=== PATIENT | male | born 1955 | race Two or more races ===

== ENCOUNTER 2017-05-13 06:03 | Day surgery (SDC) | payer OTHER ==
[2017-05-10 15:34] VITALS: BMI 22.7
[2017-05-13] VITALS (10 sets, daily range): BP systolic 113–146; BP diastolic 79–93; PULSE 66–81; RESP 13–18; Ht 165.1 cm; Wt 61.5 kg
[~2017-05-13] VITALS: Ht 165.1 cm; Wt 61.5 kg
[~2017-05-13 06:03] MED LIST: ANUHCSUP PR; GEMF600T60 PO; GUAI118L94 PO; LORA-186 PO; PANT40TA4 PO; UDMYL PO
[2017-05-13] MEDS ORDERED: AMLO-145 PO (06:47)
--- NOTE | 2017-05-13 06:52 | RADRPT ---
PROCEDURE: XR Chest. CLINICAL INDICATION: Preoperative. TECHNIQUE: Single frontal view. COMPARISON: 08/30/2015. FINDINGS: The lungs are clear. The heart size is normal. There is calcification in the aorta consistent with atherosclerosis. There is no pleural effusion. There is no pneumothorax. IMPRESSION: 1. Atherosclerosis. 2. Clear lungs. 3. No change from 08/30/2015. RPTAT: QQ .Garfield Cobb MD, MD Date Time Electronically viewed and signed by .Garfield Cobb MD, MD on 05/13/2017 06:51 .R/
[2017-05-13] MEDS ORDERED: BUPIVACAINE 0.25% (MPF) 30 ML INJ ONE (07:02)
[2017-05-13] MEDS ORDERED: SUCCINYLCHOLINE CHLORIDE 100 MG/5 ML SYG IV ONE (07:32)
[2017-05-13] MEDS ORDERED: LIDOCAINE 2% (SDV) 5 ML INJ ONE (07:32)
[2017-05-13] MEDS ORDERED: PROPOFOL 20 ML ONE (07:32)
[2017-05-13] MEDS ORDERED: MIDAZOLAM 1 MG/ML 2 ML INJ ONE (07:32)
[2017-05-13] MEDS ORDERED: FENTAnyl 50 MCG/ML VIAL ONE (07:32)
[2017-05-13] MEDS ORDERED: CEFAZOLIN 1 GM INJ ONE (07:58)
[2017-05-13] MEDS ORDERED: KETOROLAC 30 MG INJ ONE (08:19)
[2017-05-13] MEDS ORDERED: ONDANSETRON 4 MG INJ ONE (08:21)
[2017-05-13] MEDS ORDERED: DEXAMETHASONE 4 MG/ML 1 ML INJ ONE (08:21)
[2017-05-13] MEDS ORDERED: EPHEDrine SULFATE 50 MG/5 ML SYG ONE (08:22)
--- NOTE | 2017-05-13 08:29 | OPR ---
Date/Time of Note Date/Time of Note DATE: 05/13/17 TIME: 08:23 Operative Report Procedure Date: May 13, 2017 Preoperative Diagnosis anal stenosis Postoperative Diagnosis anal stenosis and perianal mass Operation Performed 1. examination under anesthesia 2. anal dilation 3. perianal mass excision 4. rigid proctoscopy 5. therapeutic injection of subcutaneous marcaine Surgeon: Mihir CAMARILLO Specimens perianal mass Indications This is a 61-year-old male who had hemorrhoidectomy surgery a year ago. Recently he has been noticing decreased size in stool caliber and difficulty with bowel movements. Patient requested evaluation and surgical repair. Patient had a recent colonoscopy 2 years ago without any concerning findings. Risks alternatives benefits and percent were discussed the patient. Patient expressed understanding and consents to the operation. Procedure Description Patient is taken to the OR and prepped and draped in usual sterile fashion surgical timeout is performed IV antibiotics given. Initial examination showed anal stenosis with hardened posterior mass at the 12 o'clock position. It could not be distinguished from cicatrix or firm mass. The firm the area was excised with a 15 blade and held with Allis and sent for specimen. Hemostasis was established. Hill-Ortez was used for further examination. There is additional areas of cicatrix and hardening this is divided with a 15 blade. Anal dilatation was performed. Rigid proctoscopy was then performed without any evidence of any masses or lesions obstructing the anal canal. Hemostasis was established throughout the incision sites. Therapeutic injection of subcutaneous Marcaine was then performed. Dry dressings were applied. Mihir CAMARILLO May 13, 2017 08:29
[2017-05-13] MEDS ORDERED: MEPERIDINE 25 MG INJ IV PRN (08:30)
[2017-05-13] MEDS ORDERED: OXYCODONE/ACETAMINOPHEN (5/325) TAB PO PRN ×2 (08:30)
[2017-05-13] MEDS ORDERED: PROCHLORPERAZINE 10 MG INJ IV PRN (08:30)
[2017-05-13] MEDS ORDERED: HYDROCODONE/APAP (5/325) TAB PO ONE (08:30)
[2017-05-13] MEDS ORDERED: FENTAnyl 50 MCG/ML VIAL IV PRN ×2 (08:30)
[2017-05-13] MEDS ORDERED: DIPHENHYDRAMINE 50 MG INJ IV PRN (08:30)
[2017-05-13] MEDS ORDERED: ONDANSETRON 4 MG INJ IV PRN (08:30)
[2017-05-13] MEDS ORDERED: HYDROmorphONE (0.2 MG/ML) 10ML SYG IV PRN (08:30)
== END 2017-05-13 10:41 | disposition home or self-care (01) ==
LOC: SDS 06:03
PROVIDERS: ATTEND Surgery
DX: K62.4 Stenosis of anus and rectum (principal); R22.9 Localized swelling, mass and lump, unspecified; K59.8 Other specified functional intestinal disorders
CPT/HCPCS: 45300; 46922; 71010; 88304; J0690; J1100; J1885; J2250; J2405; J3010; J7999; Z7512; Z7610

== ENCOUNTER 2018-12-18 06:20 | Inpatient (IN) | payer OTHER ==
[2018-12-18] VITALS (42 sets, daily range): BP systolic 90–156; BP diastolic 48–99; PULSE 59–100; RESP 6–28; Ht 165.1 cm; Wt 64.6 kg
[~2018-12-18] VITALS: Ht 165.1 cm; Wt 64.6 kg
[~2018-12-18 06:20] MED LIST changes: +AMLO-145 PO; -ANUHCSUP PR; -GEMF600T60 PO; +GEMF600T8 PO; +HYDR25SU37 PR
[2018-12-18] MEDS ORDERED: BUPIVACAINE 0.25% (MPF) 30 ML INJ ONE (06:40)
[2018-12-18] MEDS ORDERED: GEMF600T8 PO (06:49)
[2018-12-18] MEDS ORDERED: AMLO5TAB4 PO (06:49)
[2018-12-18] MEDS ORDERED: CEFAZOLIN 2 GM/50 ML (PMX) 50 ML IVPB ONE (07:00)
[2018-12-18] MEDS ORDERED: SOD CHLORIDE 0.9% 1,000 ML IV SCH (07:00)
--- NOTE | 2018-12-18 07:27 | PREAC ---
Date/Time of Note Date/Time of Note DATE: 12/18/18 TIME: 07: Anesthesia Eval and Record Evaluation Time Pre-Procedure Interview DATE: 12/18/18 TIME: 07: Age 62 Sex male NPO: 8 hrs Preoperative diagnosis recurrent anal stenosis Planned procedure anorectal mucosal and skin flap and rigid proctoscopy Past Medical History Past Medical History: Includes Cardio: HTN, Dyslipidemia Surgery & Anesthesia Issues No known issue Meds Anticoagulation: No Beta Law within 24 hr: No Reason Beta Law not given: Pt. not on B-Law Reported Medications Gemfibrozil* (Gemfibrozil*) 600 Mg Tablet, 600 MG PO BID, TAB 12/18/18 Amlodipine Besylate* (Norvasc*) 5 Mg Tablet, 5 MG PO DAILY, TAB 12/18/18 Discontinued Reported Medications Amlodipine Besylate* (Amlodipine Besylate*) 5 Mg Tablet, 5 MG PO DAILY, #30 05/13/17 Hydrocortisone* Rectal (Anucort-HC* Supp) 25 Mg Supp, 25 MG HI HS, SUPP 04/14/15 Pantoprazole* (Pantoprazole*) 40 Mg Tablet.dr, 40 MG PO DAILY, TAB 04/14/15 Gemfibrozil* (Gemfibrozil*) 600 Mg Tablet, 600 MG PO BID, TAB 04/14/15 Discontinued Scripts Loratadine* (Claritin*) 10 Mg Tablet, 10 MG PO DAILY, #30 TAB Prov:NEO CAI NP 08/30/15 Guaifenesin-Codeine Phosphate* (Guaifenesin* with Codeine Liq) 120 Ml Liquid, 5 ML PO Q4H for COUGH, #120 ML Prov:NEO CAI NP 08/30/15 Magaldrate/Simethicone* (Mag-Al Plus Suspension*) 30 Ml Oral.susp, 30 ML PO Q6H PRN for GASTROINTESTINAL UPSET, #1 BOTTLE Prov:NEO CAI NP 08/30/15 Current Medications Cefazolin Sodium/ Dextrose 50 ml @ 100 mls/hr PRE-OP ONCE IVPB ; Start 12/18/18 at 07:00; Stop 12/18/18 at 07:29 Sodium Chloride 1,000 ml @ 75 mls/hr [id number] IV ; Start 12/18/18 at 07:00 Meds reviewed: Yes Allergies Coded Allergies: No Known Drug Allergy (Verified Allergy, Unknown, 12/18/18) Allergies Reviewed: Yes Labs/Studies Labs Reviewed: Reviewed by anesthesiologist test: N/A Pre-procedure Exam Last vitals Vital Signs Date Temp Pulse Resp B/P (MAP) Pulse Ox O2 O2 Flow FiO2 Time Delivery Rate 12/18/18 98.0 59 18 145/59 98 Room Air 07:17 (87) Airway: Adequate mouth opening, Adequate thyromental dist Mallampati: Mallampati II Teeth: Normal Lung: Normal Heart: Normal ASA Physical Status ASA physical status: 2 Emergency: None Planned Anesthetic General/MAC: ETT Planned Pain Management Parenteral pain med Pre-operative Attestations Prior to commencing anesthesia and surgery, the patient was re-evaluated, there was verification of: *The patient's identity *The results of appropriate recent lab work and preoperative vital signs *The above evaluation not changing prior to induction *Anesthetic plan, risk benefits, alternative and complications discussed with patient/family; questions answered; patient/family understands, accepts and wishes to proceed. HARLEY CAMPOS MD Dec 18, 2018 07:27
[2018-12-18] MEDS ORDERED: MIDAZOLAM 1 MG/ML 2 ML INJ ONE (07:44)
[2018-12-18] MEDS ORDERED: ROCURONIUM 50 MG INJ ONE (07:45)
[2018-12-18] MEDS ORDERED: FAMOTIDINE 20 MG INJ ONE (07:45)
[2018-12-18] MEDS ORDERED: LIDOCAINE 2% (SDV) 5 ML INJ ONE (07:45)
[2018-12-18] MEDS ORDERED: SEVOFLURANE 15 MIN ONE (07:45)
[2018-12-18] MEDS ORDERED: FENTAnyl 50 MCG/ML VIAL ONE (07:45)
[2018-12-18] MEDS ORDERED: CEFAZOLIN 1 GM INJ ONE (07:45)
[2018-12-18] MEDS ORDERED: SUCCINYLCHOLINE CHLORIDE 100 MG/5 ML SYG IV ONE (07:45)
[2018-12-18] MEDS ORDERED: PROPOFOL 20 ML ONE (07:45)
[2018-12-18] MEDS ORDERED: EPHEDrine SULFATE 50 MG/5 ML SYG ONE (07:45)
[2018-12-18] MEDS ORDERED: ONDANSETRON 4 MG INJ ONE (08:17)
[2018-12-18] MEDS ORDERED: DEXAMETHASONE 4 MG/ML 5 ML INJ ONE (08:17)
[2018-12-18] MEDS ORDERED: HYDROmorphONE 2 MG/ML SYG ONE (08:17)
[2018-12-18] MEDS ORDERED: NEOSTIGMINE 10 MG INJ ONE (09:09)
[2018-12-18] MEDS ORDERED: GLYCOPYRROLATE 0.4 MG INJ ONE (09:09)
[2018-12-18] MEDS ORDERED: SUGAMMADEX SODIUM 200 MG/2 ML VIAL IV ONE (09:18)
[2018-12-18] MEDS ORDERED: DIPHENHYDRAMINE 50 MG INJ IV PRN (09:30)
[2018-12-18] MEDS ORDERED: OXYCODONE/ACETAMINOPHEN (5/325) TAB PO PRN (09:30)
[2018-12-18] MEDS ORDERED: FENTAnyl 50 MCG/ML VIAL IV PRN ×3 (09:30)
[2018-12-18] MEDS ORDERED: MEPERIDINE 25 MG INJ IV PRN (09:30)
[2018-12-18] MEDS ORDERED: ONDANSETRON 4 MG INJ IV PRN ×2 (09:30→17:00)
[2018-12-18] MEDS ORDERED: HYDROmorphONE 0.5 MG/0.5 ML SYG IV PRN (09:30)
[2018-12-18] MEDS ORDERED: PROCHLORPERAZINE 10 MG INJ IV PRN (09:30)
[2018-12-18] MEDS ORDERED: HYDROCODONE/APAP (5/325) TAB PO PRN (09:30)
[2018-12-18] MEDS ORDERED: HYDROmorphONE 1 MG/5 ML IV SYRINGE IV PRN ×3 (09:30)
--- NOTE | 2018-12-18 09:37 | OPR ---
Date/Time of Note Date/Time of Note DATE: 12/18/18 TIME: 09:32 Operative Report Procedure Date: Dec 18, 2018 Preoperative Diagnosis anal stenosis Postoperative Diagnosis same Operation/Procedure Performed 1. anoplasty with house flap of localized adjacent tissue transfer with the use of skin flaps 70 sq cm defect of posterior pelvis 2. rigid proctoscopy 3. therapeutic injection of subcutaneous local anesthesia Surgeon see signature line Director Of Social Work none Anesthesia Type: general Estimated Blood Loss: 10 - 50 ml's Transfusion none Specimen none Grafts/Implants none Complications none Pt Condition Post Procedure: stable Indications This is a 62-year-old male who had extensive hemorrhoids. He had a hemorrhoidectomy. Subsequently he developed hypertrophic scarring in the posterior aspect. He had multiple serial dilatations without resolution and continue narrowed anal canal. He was managed medically for some time but he requested surgical intervention to allow widening of his anal canal. He is brought to the OR for rigid proctoscopy anal plasty with advancement house flap. Risks alternatives benefits and percent were discussed with the patient. Potential complications including but not limited to bleeding infection recurrence of anal stenosis mild incontinence pain infection were discussed the patient. Patient expressed understanding and consents to the operation. Procedure Description Patient is taken to the OR and prepped and draped in usual sterile fashion in a jackknife prone position. Surgical timeout was performed and IV antibiotics were given. Examination of the anal canal was made. Approximately 1 fingerbreadth was allowed for access however there was a tightening in the posterior aspect showing hypertrophic scarring. Small Hill-Ortez was placed and a 15 blade was used to fracture the scarring in a controlled fashion. Hypertrophic scarring was opened with careful attention to the sphincter muscles. The sphincter muscles were protected. 15 blade was used to make a house flap from the posterior sacrum all the way down to the posterior anal canal. The house flap was then raised with cautery all the way down to the mid sacrum. Good hemostasis was established in the surgical site. After the fracture of the posterior hypertrophic scarring a medium-sized Hill-Ortez was easily placed in the anal canal. Rigid proctoscopy was performed. There was no evidence of any masses or lesions in the rigid proctoscopy. The house advancement flap was then raised and advanced using interrupted 2-[address] down to the hypertrophic scarring to allow good healing. The localized adjacent to his transfer with use of skin flaps was closed with multiple 2-0 Vicryl and the posterior aspect near the sacral skin was closed with skin karine. Therapeutic contains local anesthesia was injected throughout all incision sites. Xeroform gauze and dry dressing was applied. Mihir CAMARILLO Dec 18, 2018 09:37
[2018-12-18] MEDS: CEFAZOLIN 2 GM/50 ML (PMX) 50 ML IVPB SCH ×2 (10:52→20:26)
--- NOTE | 2018-12-18 12:55 | PAC ---
Date/Time of Note Date/Time of Note DATE: 12/18/18 TIME: 12:55 Post-Anesthesia Notes Post-Anesthesia Note Last documented vital signs Vital Signs Date Temp Pulse Resp B/P (MAP) Pulse Ox O2 O2 Flow FiO2 Time Delivery Rate 12/18/18 98 88 9 131/81 94 Room Air 11:33 (98) 12/18/18 6.0 09:48 12/18/18 98.0 09:40 Activity: WNL Respiratory function: WNL Cardiovascular function: WNL Mental status: Baseline Pain reasonably controlled: Yes Hydration appropriate: Yes Nausea/Vomiting absent: Yes HARLEY CAMPOS MD Dec 18, 2018 12:55
[2018-12-18] MEDS ORDERED: HYDROmorphONE 1 MG/5 ML IV SYRINGE IV ONE (13:14)
--- NOTE | 2018-12-18 16:52 | QN ---
Documentation Comment seen and examined JEANCARLOS MONTOYA MD Dec 18, 2018 16:52
[2018-12-18] MEDS ORDERED: morphine 2 MG INJ IV PRN (17:00)
[2018-12-18] MEDS ORDERED: IBUPROFEN 600 MG TAB PO PRN (17:00)
[2018-12-18] MEDS ORDERED: ZOLPIDEM 5 MG TAB PO PRN (17:00)
[2018-12-18] MEDS: HYDROCODONE/APAP (5/325) TAB PO PRN (17:34)
[2018-12-18] MEDS: SOD CHLORIDE 0.9% 1,000 ML IV SCH ×2 (19:28→19:31)
[2018-12-19 02:00] VITALS: BP 104/63; PULSE 84; RESP 18
[2018-12-19] MEDS: CEFAZOLIN 2 GM/50 ML (PMX) 50 ML IVPB SCH ×2 (03:54→11:38)
[2018-12-19] MEDS: PANTOPRAZOLE (EC) 40 MG TAB PO SCH ×2 (05:35→06:07)
[2018-12-19] MEDS: HYDROCODONE/APAP (5/325) TAB PO PRN ×3 (05:39→17:35)
[2018-12-19] MEDS: SOD CHLORIDE 0.9% 1,000 ML IV SCH ×2 (06:08→15:28)
[2018-12-19 07:31] VITALS: BP 119/71; PULSE 74; RESP 18
[2018-12-19] MEDS ORDERED: BISACODYL (EC) 5 MG TAB PO ONE (10:30)
--- NOTE | 2018-12-19 10:52 | PN ---
Date/Time of Note Date/Time of Note DATE: 12/19/18 TIME: 10:51 Assessment/Plan VTE Prophylaxis Risk score (from Ns)>0 risk: 2 SCD applied (from Ns): No SCD contraindicated: other Pharmacological prophylaxis: other Lines/Catheters IV Catheter Type (from Nrsg): Peripheral IV Assessment/Plan Assessment/Plan s/p house advancement flap for anal stenosis pain control and await bowel movement Result Diagram: 12/18/18 1053 12/18/18 1053 Results 24hrs Laboratory Tests Test 12/18/18 10:53 White Blood Count 9.4 # Red Blood Count 4.85 Hemoglobin 13.6 L Hematocrit 40.9 L Mean Corpuscular Volume 84.3 Mean Corpuscular Hemoglobin 28.0 L Mean Corpuscular Hemoglobin Concent 33.3 Red Cell Distribution Width 12.7 Platelet Count 217 Mean Platelet Volume 11.7 H Immature Granulocytes % 0.300 Neutrophils % 79.8 H Lymphocytes % 16.1 Monocytes % 1.7 Eosinophils % 1.7 Basophils % 0.4 Nucleated Red Blood Cells % 0.0 Immature Granulocytes # 0.030 Neutrophils # 7.5 Lymphocytes # 1.5 Monocytes # 0.2 L Eosinophils # 0.2 Basophils # 0.0 Nucleated Red Blood Cells # 0.0 Sodium Level 142 Potassium Level 3.7 Chloride Level 108 Carbon Dioxide Level 23 Anion Gap 11 Blood Urea Nitrogen 14 Creatinine 0.82 Est Glomerular Filtrat Rate mL/min > 60 Glucose Level 117 Calcium Level 9.1 Total Bilirubin 0.0 L Direct Bilirubin 0.00 Indirect Bilirubin 0.0 Aspartate Amino Transf (AST/SGOT) 29 Alanine Aminotransferase (ALT/SGPT) 27 Alkaline Phosphatase 70 Total Protein 7.9 Albumin 4.4 Globulin 3.50 H Albumin/Globulin Ratio 1.25 Subjective 24 Hr Interval Summary Free Text/Dictation patient doing well, but still having some pain issues Exam/Review of Systems Exam Vitals Vital Signs Date Temp Pulse Resp B/P (MAP) Pulse Ox O2 O2 Flow FiO2 Time Delivery Rate 12/19/18 98.6 74 18 119/71 98 07:31 (87) 12/18/18 Room Air 15:03 12/18/18 6.0 09:48 Intake and Output 12/18/18 12/18/18 12/19/18 1515:00 23:00 07:00 IntakeIntake Total 750 ml 450 ml 1300 ml OutputOutput Total 10 ml 250 ml BalanceBalance 740 ml 450 ml 1050 ml Exam c/d/i Results Results 24hrs Laboratory Tests Test 12/18/18 10:53 White Blood Count 9.4 # Red Blood Count 4.85 Hemoglobin 13.6 L Hematocrit 40.9 L Mean Corpuscular Volume 84.3 Mean Corpuscular Hemoglobin 28.0 L Mean Corpuscular Hemoglobin Concent 33.3 Red Cell Distribution Width 12.7 Platelet Count 217 Mean Platelet Volume 11.7 H Immature Granulocytes % 0.300 Neutrophils % 79.8 H Lymphocytes % 16.1 Monocytes % 1.7 Eosinophils % 1.7 Basophils % 0.4 Nucleated Red Blood Cells % 0.0 Immature Granulocytes # 0.030 Neutrophils # 7.5 Lymphocytes # 1.5 Monocytes # 0.2 L Eosinophils # 0.2 Basophils # 0.0 Nucleated Red Blood Cells # 0.0 Sodium Level 142 Potassium Level 3.7 Chloride Level 108 Carbon Dioxide Level 23 Anion Gap 11 Blood Urea Nitrogen 14 Creatinine 0.82 Est Glomerular Filtrat Rate mL/min > 60 Glucose Level 117 Calcium Level 9.1 Total Bilirubin 0.0 L Direct Bilirubin 0.00 Indirect Bilirubin 0.0 Aspartate Amino Transf (AST/SGOT) 29 Alanine Aminotransferase (ALT/SGPT) 27 Alkaline Phosphatase 70 Total Protein 7.9 Albumin 4.4 Globulin 3.50 H Albumin/Globulin Ratio 1.25 Medications Medication Current Medications Sodium Chloride 1,000 ml @ 100 mls/hr Q10H IV Last administered on 12/19/18at 06:08; Admin Dose 100 MLS/HR; Start 12/18/18 at 09:28 Acetaminophen/ Hydrocodone Bitart ([place] (5/325)) 1 tab Q3H PRN PO MODERATE PAIN LEVEL 4-6 Last administered on 12/19/18at 05:39; Admin Dose 1 TAB; Start 12/18/18 at 17:00 Morphine Sulfate (morphine) 2 mg Q4 PRN IV SEVERE PAIN LEVEL 7-10; Start 12/18/18 at 17:00 Ondansetron HCl (Zofran Inj) 4 mg Q6H PRN IV NAUSEA/VOMITING; Start 12/18/18 at 17:00 Acetaminophen (Tylenol Tab) 650 mg Q6H PRN PO .PAIN 1-3 OR TEMP; Start 12/18/18 at 17:00 Ibuprofen (Motrin) 600 mg Q6H PRN PO .PAIN 1-3; Start 12/18/18 at 17:00 Zolpidem Tartrate (Ambien) 5 mg QHS PRN PO .INSOMNIA; Start 12/18/18 at 17:00 Pantoprazole (Protonix Tab) 40 mg DAILY@06 PO Last administered on 12/19/18at 06:07; Admin Dose 40 MG; Start 12/19/18 at 06:00 Cefazolin Sodium/ Dextrose 50 ml @ 100 mls/hr Q8H IVPB Last administered on 12/19/18at 03:54; Admin Dose 100 MLS/HR; Start 12/19/18 at 04:00; Stop 12/19/18 at 14:00 Mihir CAMARILLO Dec 19, 2018 10:52
[2018-12-19 13:24] VITALS: BP 135/83; PULSE 80; RESP 18
--- NOTE | 2018-12-19 16:19 | PN ---
Date/Time of Note Date/Time of Note DATE: 12/19/18 TIME: 16:16 Assessment/Plan VTE Prophylaxis Risk score (from Nsg)>0 risk: 2 SCD applied (from Ns): No SCD contraindicated: low risk/ambulating Pharmacological prophylaxis: NA/contraindicated Pharm contraindication: low risk/ambulating Lines/Catheters IV Catheter Type (from Nrsg): Peripheral IV Assessment/Plan Hospital Course 62 y/o with 1s/p house advancement flap for anal stenosis pOD #1 2 hTN 3 Hypertriglycerdimia 4 Pain control Plan -Pain control -Awaiting bowel movement -DC IV fluids -Stool softeners -Restart home medications Result Diagram: 12/18/18 1053 12/18/18 1053 Subjective 24 Hr Interval Summary Free Text/Dictation no bm yet Exam/Review of Systems Exam Vitals Vital Signs Date Temp Pulse Resp B/P (MAP) Pulse Ox O2 O2 Flow FiO2 Time Delivery Rate 12/19/18 98.4 80 18 135/83 98 13:24 (100) 12/18/18 Room Air 15:03 12/18/18 6.0 09:48 Intake and Output 12/18/18 12/18/18 12/19/18 1515:00 23:00 07:00 IntakeIntake Total 750 ml 450 ml 1300 ml OutputOutput Total 10 ml 250 ml BalanceBalance 740 ml 450 ml 1050 ml Exam s/p house advancement flap for anal stenosis Medications Medication Current Medications Sodium Chloride 1,000 ml @ 100 mls/hr Q10H IV Last administered on 12/19/18at 06:08; Admin Dose 100 MLS/HR; Start 12/18/18 at 09:28 Acetaminophen/ Hydrocodone Bitart ([place] (5/325)) 1 tab Q3H PRN PO MODERATE PAIN LEVEL 4-6 Last administered on 12/19/18at 11:39; Admin Dose 1 TAB; Start 12/18/18 at 17:00 Morphine Sulfate (morphine) 2 mg Q4 PRN IV SEVERE PAIN LEVEL 7-10; Start 12/18/18 at 17:00 Ondansetron HCl (Zofran Inj) 4 mg Q6H PRN IV NAUSEA/VOMITING; Start 12/18/18 at 17:00 Acetaminophen (Tylenol Tab) 650 mg Q6H PRN PO .PAIN 1-3 OR TEMP; Start 12/18/18 at 17:00 Ibuprofen (Motrin) 600 mg Q6H PRN PO .PAIN 1-3; Start 12/18/18 at 17:00 Zolpidem Tartrate (Ambien) 5 mg QHS PRN PO .INSOMNIA; Start 12/18/18 at 17:00 Pantoprazole (Protonix Tab) 40 mg DAILY@06 PO Last administered on 12/19/18at 06:07; Admin Dose 40 MG; Start 12/19/18 at 06:00 JEANCARLOS MONTOYA MD Dec 19, 2018 16:19
[2018-12-19 19:40] VITALS: BP 136/67; PULSE 82; RESP 18
[2018-12-19] MEDS: GEMFIBROZIL 600 MG TAB PO SCH (22:08)
[2018-12-20 01:35] VITALS: BP 131/77; PULSE 76; RESP 18
[2018-12-20 07:24] VITALS: BP 127/69; PULSE 74; RESP 16
[2018-12-20] MEDS: AMLODIPINE 5 MG TAB PO SCH (08:38)
[2018-12-20] MEDS: GEMFIBROZIL 600 MG TAB PO SCH ×2 (08:38→20:23)
--- NOTE | 2018-12-20 13:19 | DS ---
Date/Time of Note Date/Time of Note DATE: 12/20/18 TIME: 13:19 Discharge Summary Admission/Discharge Info Admit Date/Time Dec 18, 2018 at 09:28 Discharge Date/Time Home Meds Reported Medications Gemfibrozil* (Gemfibrozil*) 600 Mg Tablet, 600 MG PO BID, TAB 12/18/18 Amlodipine Besylate* (Norvasc*) 5 Mg Tablet, 5 MG PO DAILY, TAB 12/18/18 Discontinued Reported Medications Amlodipine Besylate* (Amlodipine Besylate*) 5 Mg Tablet, 5 MG PO DAILY, #30 05/13/17 Hydrocortisone* Rectal (Anucort-HC* Supp) 25 Mg Supp, 25 MG MT HS, SUPP 04/14/15 Pantoprazole* (Pantoprazole*) 40 Mg Tablet.dr, 40 MG PO DAILY, TAB 04/14/15 Gemfibrozil* (Gemfibrozil*) 600 Mg Tablet, 600 MG PO BID, TAB 04/14/15 Discontinued Scripts Loratadine* (Claritin*) 10 Mg Tablet, 10 MG PO DAILY, #30 TAB Prov:NEO CAI NP 08/30/15 Guaifenesin-Codeine Phosphate* (Guaifenesin* with Codeine Liq) 120 Ml Liquid, 5 ML PO Q4H for COUGH, #120 ML Prov:NEO CAI NP 08/30/15 Magaldrate/Simethicone* (Mag-Al Plus Suspension*) 30 Ml Oral.susp, 30 ML PO Q6H PRN for GASTROINTESTINAL UPSET, #1 BOTTLE Prov:NEO CAI NP 08/30/15 Primary Care Provider Carloz Murphy MD Time spent on discharge: < 30 minutes TERRI CLEMENTE Dec 20, 2018 13:19
[2018-12-20] MEDS: PSYLLIUM 28% PACKET PO SCH (13:30)
--- NOTE | 2018-12-20 13:31 | PN ---
Date/Time of Note Date/Time of Note DATE: 12/20/18 TIME: 13:30 Assessment/Plan VTE Prophylaxis Risk score (from Nsg)>0 risk: 2 SCD applied (from Ns): No SCD contraindicated: other Pharmacological prophylaxis: other Lines/Catheters IV Catheter Type (from Nrsg): Peripheral IV Assessment/Plan Assessment/Plan s/p house advancement skin flap for anal stenosis Result Diagram: 12/18/18 1053 12/18/18 1053 Subjective 24 Hr Interval Summary Free Text/Dictation patient doing better, still some pain issues Exam/Review of Systems Exam Vitals Vital Signs Date Temp Pulse Resp B/P (MAP) Pulse Ox O2 O2 Flow FiO2 Time Delivery Rate 12/20/18 98.7 74 16 127/69 98 Room Air 07:24 (88) 12/18/18 6.0 09:48 Intake and Output 12/19/18 12/19/18 12/20/18 1515:00 23:00 07:00 IntakeIntake Total 290 ml 1820 ml BalanceBalance 290 ml 1820 ml Exam house skin flap viable dressings clean minimal drainage Medications Medication Current Medications Acetaminophen/ Hydrocodone Bitart ([place] (5/325)) 1 tab Q3H PRN PO MODERATE PAIN LEVEL 4-6 Last administered on 12/19/18at 17:35; Admin Dose 1 TAB; Start 12/18/18 at 17:00 Morphine Sulfate (morphine) 2 mg Q4 PRN IV SEVERE PAIN LEVEL 7-10; Start 12/18/18 at 17:00 Ondansetron HCl (Zofran Inj) 4 mg Q6H PRN IV NAUSEA/VOMITING; Start 12/18/18 at 17:00 Acetaminophen (Tylenol Tab) 650 mg Q6H PRN PO .PAIN 1-3 OR TEMP; Start 12/18/18 at 17:00 Ibuprofen (Motrin) 600 mg Q6H PRN PO .PAIN 1-3; Start 12/18/18 at 17:00 Zolpidem Tartrate (Ambien) 5 mg QHS PRN PO .INSOMNIA; Start 12/18/18 at 17:00 Pantoprazole (Protonix Tab) 40 mg DAILY@06 PO Last administered on 12/19/18at 06:07; Admin Dose 40 MG; Start 12/19/18 at 06:00 Amlodipine Besylate (Norvasc) 5 mg DAILY PO Last administered on 12/20/18at 08:38; Admin Dose 5 MG; Start 12/20/18 at 09:00 Gemfibrozil (Lopid) 600 mg BID PO Last administered on 12/20/18at 08:38; Admin Dose 600 MG; Start 12/19/18 at 21:00 Mihir CAMARILLO Dec 20, 2018 13:31
[2018-12-20 13:47] VITALS: BP 122/74; PULSE 77; RESP 16
--- NOTE | 2018-12-20 16:03 | PN ---
Date/Time of Note Date/Time of Note DATE: 12/20/18 TIME: 16:02 Assessment/Plan VTE Prophylaxis Risk score (from Ns)>0 risk: 2 SCD applied (from Ns): No SCD contraindicated: low risk/ambulating Pharmacological prophylaxis: NA/contraindicated Pharm contraindication: surgical contra Lines/Catheters IV Catheter Type (from Nrsg): Peripheral IV Assessment/Plan Hospital Course 1. anoplasty with house flap of localized adjacent tissue transfer with the use of skin flaps 70 sq cm defect of posterior pelvis 2. HTN 3 Hypertriglyceridemia. Assessment/Plan -Pain control -bowel movement today -DC planing -home health nurse -Stool softeners -Restart home medications Result Diagram: 12/18/18 1053 12/18/18 1053 Subjective 24 Hr Interval Summary Gastrointestinal: pain (anal area) Exam/Review of Systems Exam Vitals Vital Signs Date Temp Pulse Resp B/P (MAP) Pulse Ox O2 O2 Flow FiO2 Time Delivery Rate 12/20/18 98.6 77 16 122/74 96 Room Air 13:47 (90) 12/18/18 6.0 09:48 Intake and Output 12/19/18 12/19/18 12/20/18 1515:00 23:00 07:00 IntakeIntake Total 290 ml 1820 ml BalanceBalance 290 ml 1820 ml Constitutional: alert, oriented Respiratory: clear to auscultation Cardiovascular: regular rate and rhythm Gastrointestinal: soft, surgical scars, other (anal area with dressing on it) Neurological: DIRECTOR OUTPATIENT SERVICES II-XII intact Medications Medication Current Medications Acetaminophen/ Hydrocodone Bitart (Icard (5/325)) 1 tab Q3H PRN PO MODERATE PAIN LEVEL 4-6 Last administered on 12/19/18at 17:35; Admin Dose 1 TAB; Start 12/18/18 at 17:00 Morphine Sulfate (morphine) 2 mg Q4 PRN IV SEVERE PAIN LEVEL 7-10; Start 12/18/18 at 17:00 Ondansetron HCl (Zofran Inj) 4 mg Q6H PRN IV NAUSEA/VOMITING; Start 12/18/18 at 17:00 Acetaminophen (Tylenol Tab) 650 mg Q6H PRN PO .PAIN 1-3 OR TEMP; Start 12/18/18 at 17:00 Ibuprofen (Motrin) 600 mg Q6H PRN PO .PAIN 1-3; Start 12/18/18 at 17:00 Zolpidem Tartrate (Ambien) 5 mg QHS PRN PO .INSOMNIA; Start 12/18/18 at 17:00 Pantoprazole (Protonix Tab) 40 mg DAILY@06 PO Last administered on 12/19/18at 06:07; Admin Dose 40 MG; Start 12/19/18 at 06:00 Amlodipine Besylate (Norvasc) 5 mg DAILY PO Last administered on 12/20/18at 08:38; Admin Dose 5 MG; Start 12/20/18 at 09:00 Gemfibrozil (Lopid) 600 mg BID PO Last administered on 12/20/18at 08:38; Admin Dose 600 MG; Start 12/19/18 at 21:00 Psyllium Hydrophilic Mucilloid (Metamucil) 1 pkt DAILY PO ; Start 12/20/18 at 13:30 TERRI CLEMENTE 2, 2019 16:03
[2018-12-20 19:27] VITALS: BP 130/86; PULSE 84; RESP 18
[2018-12-21 02:09] VITALS: BP 119/74; PULSE 79; RESP 18
[2018-12-21] MEDS: PANTOPRAZOLE (EC) 40 MG TAB PO SCH (05:57)
[2018-12-21 08:08] VITALS: BP 106/70; PULSE 74; RESP 16
[2018-12-21] MEDS: PSYLLIUM 28% PACKET PO SCH (09:00)
--- NOTE | 2018-12-21 09:15 | PN ---
Date/Time of Note Date/Time of Note DATE: 12/21/18 TIME: 09:10 Assessment/Plan VTE Prophylaxis Risk score (from Ns)>0 risk: 2 SCD applied (from Ns): No SCD contraindicated: low risk/ambulating Pharmacological prophylaxis: NA/contraindicated Pharm contraindication: surgical contra Lines/Catheters IV C[facility]ter [facility]from [facility]): Saline Lock Assessment/Plan Hospital Course 1.s/p anoplasty with house flap of localized adjacent tissue transfer with the use of skin flaps 70 sq cm defect of posterior pelvis y dr Badillo 2. HTN 3 Hypertriglyceridemia. Assessment/Plan -Pain control -DVT proph. ambulation -DC planing Saturday per Dr Badillo, he wants to do dressing change -wound care daily -home health nurse -c/w Stool softeners Result Diagram: 12/21/1862012/21/18 0621 Results 24hrs Laboratory Tests Test 12/21/18 06:21 White Blood Count 6.1 # Red Blood Count 5.09 Hemoglobin 14.0 Hematocrit 41.4 L Mean Corpuscular Volume 81.3 L Mean Corpuscular Hemoglobin 27.5 L Mean Corpuscular Hemoglobin Concent 33.8 Red Cell Distribution Width 12.5 Platelet Count 238 Mean Platelet Volume 11.9 H Immature Granulocytes % 0.200 Neutrophils % 42.5 Lymphocytes % 33.2 Monocytes % 10.2 Eosinophils % 12.9 H Basophils % 1.0 Nucleated Red Blood Cells % 0.0 Immature Granulocytes # 0.010 Neutrophils # 2.6 Lymphocytes # 2.0 Monocytes # 0.6 Eosinophils # 0.8 H Basophils # 0.1 Nucleated Red Blood Cells # 0.0 Sodium Level 138 Potassium Level 4.1 Chloride Level 105 Carbon Dioxide Level 21 Anion Gap 12 Blood Urea Nitrogen 16 Creatinine 0.80 Est Glomerular Filtrat Rate mL/min > 60 Glucose Level 111 Hemoglobin A1c 5.5 Calcium Level 10.0 Exam/Review of Systems Exam Vitals Vital Signs Date Temp Pulse Resp B/P (MAP) Pulse Ox O2 O2 Flow FiO2 Time Delivery Rate 12/21/18 98.7 74 16 106/70 100 Room Air 08:08 (82) 12/18/18 6.0 09:48 Intake and Output 12/20/18 12/20/18 12/21/18 1515:00 23:00 07:00 IntakeIntake Total 600 ml BalanceBalance 600 ml Constitutional: alert, oriented Respiratory: clear to auscultation Cardiovascular: regular rate and rhythm Gastrointestinal: soft, surgical scars (posterior pelvis) Results Results 24hrs Laboratory Tests Test 12/21/18 06:21 White Blood Count 6.1 # Red Blood Count 5.09 Hemoglobin 14.0 Hematocrit 41.4 L Mean Corpuscular Volume 81.3 L Mean Corpuscular Hemoglobin 27.5 L Mean Corpuscular Hemoglobin Concent 33.8 Red Cell Distribution Width 12.5 Platelet Count 238 Mean Platelet Volume 11.9 H Immature Granulocytes % 0.200 Neutrophils % 42.5 Lymphocytes % 33.2 Monocytes % 10.2 Eosinophils % 12.9 H Basophils % 1.0 Nucleated Red Blood Cells % 0.0 Immature Granulocytes # 0.010 Neutrophils # 2.6 Lymphocytes # 2.0 Monocytes # 0.6 Eosinophils # 0.8 H Basophils # 0.1 Nucleated Red Blood Cells # 0.0 Sodium Level 138 Potassium Level 4.1 Chloride Level 105 Carbon Dioxide Level 21 Anion Gap 12 Blood Urea Nitrogen 16 Creatinine 0.80 Est Glomerular Filtrat Rate mL/min > 60 Glucose Level 111 Hemoglobin A1c 5.5 Calcium Level 10.0 Medications Medication Current Medications Acetaminophen/ Hydrocodone Bitart ([place] (5/325)) 1 tab Q3H PRN PO MODERATE PAIN LEVEL 4-6 Last administered on 12/19/18at 17:35; Admin Dose 1 TAB; Start 12/18/18 at 17:00 Morphine Sulfate (morphine) 2 mg Q4 PRN IV SEVERE PAIN LEVEL 7-10; Start 12/18/18 at 17:00 Ondansetron HCl (Zofran Inj) 4 mg Q6H PRN IV NAUSEA/VOMITING; Start 12/18/18 at 17:00 Acetaminophen (Tylenol Tab) 650 mg Q6H PRN PO .PAIN 1-3 OR TEMP; Start 12/18/18 at 17:00 Ibuprofen (Motrin) 600 mg Q6H PRN PO .PAIN 1-3; Start 12/18/18 at 17:00 Zolpidem Tartrate (Ambien) 5 mg QHS PRN PO .INSOMNIA; Start 12/18/18 at 17:00 Pantoprazole (Protonix Tab) 40 mg DAILY@06 PO Last administered on 12/21/18at 05:57; Admin Dose 40 MG; Start 12/19/18 at 06:00 Amlodipine Besylate (Norvasc) 5 mg DAILY PO Last administered on 12/20/18at 08:38; Admin Dose 5 MG; Start 12/20/18 at 09:00 Gemfibrozil (Lopid) 600 mg BID PO Last administered on 12/20/18at 20:23; Admin Dose 600 MG; Start 12/19/18 at 21:00 Psyllium Hydrophilic Mucilloid (Metamucil) 1 pkt DAILY PO ; Start 12/20/18 at 13: 30 TERRI CLEMENTE Dec 21, 2018 09:15
[2018-12-21] MEDS: ACETAMINOPHEN 325 MG TAB PO PRN ×2 (09:25→20:43)
[2018-12-21] MEDS: AMLODIPINE 5 MG TAB PO SCH (09:26)
[2018-12-21] MEDS: GEMFIBROZIL 600 MG TAB PO SCH ×2 (09:26→20:43)
--- NOTE | 2018-12-21 13:43 | PN ---
DATE: 12/21/2018 Postop day #3, status post operation for recurrent anal stenosis by placement of skin flap. SUBJECTIVE: The patient states feels better. Today, has had about 2 bowel movements, not diarrhea, not hard medium, no bleeding. Has been tolerating diet. OBJECTIVE: VITAL SIGNS: Temperature 98.7, heart rate 74, respirations 16, blood pressure 106/70, saturation 96% on room air. SKIN: Dressing was changed. Wound looks clean at this time. He is postop day 3. LABORATORY DATA: WBC 6100 with 42% segmented, hemoglobin 14, hematocrit 41. Chemistry: Sodium, pot assium, BUN, creatinine within normal limits. ASSESSMENT AND PLAN: Postoperative day #3, status post operation for recurrent anal stenosis by plac ement of the skin flap. After mobilization of the skin flap today, the wound was examined except the anal area and anal canal because it is painful, but the rest of the area which is the site of mobili zation of the skin flap is clean, no infection at this time. Xeroform dressing was actually applied again with bulky ABD dressing. PLAN: Continue current care. Dr. Gonsalves will decide tomorrow if he wants to discharge the patient or n ot. Dictated By: JOVANNI PISANO MD PS/NTS Conf#: [id number] DID#: [id number] CC: JASKARAN GONSALVES MD; NICOLE SANTOYO MD;*EndCC*
[2018-12-21 15:07] VITALS: BP 122/76; PULSE 78; RESP 16
[2018-12-21 19:21] VITALS: BP 109/76; PULSE 79; RESP 18
[2018-12-22 02:22] VITALS: BP 120/78; PULSE 89; RESP 18
[2018-12-22] MEDS: GUAIFENESIN 20 MG/ML 5ML CUP PO PRN ×2 (03:59→13:31)
[2018-12-22] MEDS: PANTOPRAZOLE (EC) 40 MG TAB PO SCH (05:15)
[2018-12-22 07:20] VITALS: BP 110/66; PULSE 82; RESP 18
--- NOTE | 2018-12-22 07:43 | HP ---
DATE OF ADMISSION: 12/20/2018 REASON FOR ADMISSION: Annuloplasty with house flap of local laceration tissue transfer and use of skin flaps. Proctoscopy and therapeutic injection of subcutaneous local anesthesia. HISTORY OF PRESENT ILLNESS: This is a 62-year-old male with a past medical history of hypertension, hyperlipidemia, history of extensive hemorrhoids. Patient had hemorrhoidectomy, subsequently developed hypertrophic scarring. He had multiple serial dilations without resolution with continued narrowing of the canal. He was managed medically for some time. He requested surgical intervention. He was brought over by Dr. Gonsalves for annuloplasty Currently, the patient is post-procedure, complaining of pain in the rectal region. Denies any other complaints. Upon admission, vital signs were blood pressure 100/58, heart rate 92, afebrile, saturating 97% on room air. PAST MEDICAL HISTORY: 1. Hypertension. 2. Hyperlipidemia. 3. History of hemorrhoids. ALLERGIES: None. PAST SURGICAL HISTORY: Hemorrhoid surgery x3. SOCIAL HISTORY: Denies any history of smoking, alcohol or any drug use. FAMILY HISTORY: Noncontributory. MEDICATIONS using at home are: 1. Gemfibrozil. 2. Norvasc. REVIEW OF SYSTEMS: The patient complains of pain in the rectal region, denies any chest pain, any shortness of breath, any abdominal pain, nausea, vomiting, diarrhea. Denies any headache, any blurry vision. Denies any hematemesis, any melena. Denies any focal neurological deficits. PHYSICAL EXAMINATION: VITAL SIGNS: Currently blood pressure 97/45, heart rate is 12, heart rate is 192, afebrile, respiratory rate is 12. GENERAL: The patient is awake, alert, oriented, lying on the side. NECK: Supple, no JVD. HEART: Regular rate and rhythm. LUNGS: Clear to auscultation bilaterally. ABDOMEN: Soft, nontender, nondistended, positive normoactive bowel sounds. EXTREMITIES: No clubbing, cyanosis, or edema. s/p anuoplasty dressing in place DIAGNOSTIC DATA: BMP Within normal limits. LABORATORY DATA: White count 9.4, hemoglobin 13.6, platelet count 217. ASSESSMENT AND PLAN: This is a 62-year-old male who presented with: 1. History of hemorrhoids, appendectomy, status post annuloplasty with house flap of localized skin tissue with the use of a skin flap. 2. History of hypertension, however currently hypotensive, basically effect of anesthesia. 3. Hyperlipidemia. 4. No further complaints, secondary to #1. PLAN: At this period of time, the patient is admitted to med/surg unit. The patient will be started on regular diet, postop orders. The patient will be on pain control. He will be seen by Dr. Gonsalves. Rest of the treatment will depend on the patient's hospitalization course. Dictated By: JEANCARLOS SALCIDO/PENNY Conf#: [id number] DID#: [id number] CC: JASKARAN GONSALVES MD;*EndCC* MTDD
--- NOTE | 2018-12-22 08:57 | PN ---
Date/Time of Note Date/Time of Note DATE: 12/22/18 TIME: 08:56 Assessment/Plan VTE Prophylaxis Risk score (from Nsg)>0 risk: 2 SCD applied (from Ns): No SCD contraindicated: other Pharmacological prophylaxis: other Lines/Catheters IV Catheter Type (from Nrsg): Saline Lock Assessment/Plan Assessment/Plan s/p house advancement flap for anal stenosis ok to go home sleep on side only and f/u in clinic in 2 weeks Result Diagram: 12/22/1851 12/22/1851 Results 24hrs Laboratory Tests Test 12/22/18 06:51 White Blood Count 6.8 Red Blood Count 4.98 Hemoglobin 14.0 Hematocrit 40.9 L Mean Corpuscular Volume 82.1 Mean Corpuscular Hemoglobin 28.1 L Mean Corpuscular Hemoglobin Concent 34.2 Red Cell Distribution Width 12.5 Platelet Count 240 Mean Platelet Volume 11.7 H Immature Granulocytes % 0.300 Neutrophils % 51.8 Lymphocytes % 28.4 Monocytes % 8.7 Eosinophils % 10.2 H Basophils % 0.6 Nucleated Red Blood Cells % 0.0 Immature Granulocytes # 0.020 Neutrophils # 3.5 Lymphocytes # 1.9 Monocytes # 0.6 Eosinophils # 0.7 H Basophils # 0.0 Nucleated Red Blood Cells # 0.0 Sodium Level 138 Potassium Level 4.0 Chloride Level 105 Carbon Dioxide Level 22 Anion Gap 11 Blood Urea Nitrogen 19 Creatinine 0.76 Est Glomerular Filtrat Rate mL/min > 60 Glucose Level 118 Calcium Level 9.6 Subjective 24 Hr Interval Summary Free Text/Dictation patient doing well pain is under control, having bowel movements Exam/Review of Systems Exam Vitals Vital Signs Date Temp Pulse Resp B/P (MAP) Pulse Ox O2 O2 Flow FiO2 Time Delivery Rate 12/22/18 97.8 82 18 110/66 96 07:20 (81) 12/21/18 Room Air 15:07 12/18/18 6.0 09:48 Intake and Output 12/21/18 12/21/18 12/22/18 1515:00 23:00 07:00 IntakeIntake Total 900 ml BalanceBalance 900 ml Exam skin flap is viable and anus is patient Results Results 24hrs Laboratory Tests Test 12/22/18 06:51 White Blood Count 6.8 Red Blood Count 4.98 Hemoglobin 14.0 Hematocrit 40.9 L Mean Corpuscular Volume 82.1 Mean Corpuscular Hemoglobin 28.1 L Mean Corpuscular Hemoglobin Concent 34.2 Red Cell Distribution Width 12.5 Platelet Count 240 Mean Platelet Volume 11.7 H Immature Granulocytes % 0.300 Neutrophils % 51.8 Lymphocytes % 28.4 Monocytes % 8.7 Eosinophils % 10.2 H Basophils % 0.6 Nucleated Red Blood Cells % 0.0 Immature Granulocytes # 0.020 Neutrophils # 3.5 Lymphocytes # 1.9 Monocytes # 0.6 Eosinophils # 0.7 H Basophils # 0.0 Nucleated Red Blood Cells # 0.0 Sodium Level 138 Potassium Level 4.0 Chloride Level 105 Carbon Dioxide Level 22 Anion Gap 11 Blood Urea Nitrogen 19 Creatinine 0.76 Est Glomerular Filtrat Rate mL/min > 60 Glucose Level 118 Calcium Level 9.6 Medications Medication Current Medications Acetaminophen/ Hydrocodone Bitart ([place] (5/325)) 1 tab Q3H PRN PO MODERATE PAIN LEVEL 4-6 Last administered on 12/19/18at 17:35; Admin Dose 1 TAB; Start 12/18/18 at 17:00 Morphine Sulfate (morphine) 2 mg Q4 PRN IV SEVERE PAIN LEVEL 7-10; Start 12/18/18 at 17:00 Ondansetron HCl (Zofran Inj) 4 mg Q6H PRN IV NAUSEA/VOMITING; Start 12/18/18 at 17:00 Acetaminophen (Tylenol Tab) 650 mg Q6H PRN PO .PAIN 1-3 OR TEMP Last administered on 12/21/18at 20:43; Admin Dose 650 MG; Start 12/18/18 at 17:00 Ibuprofen (Motrin) 600 mg Q6H PRN PO .PAIN 1-3; Start 12/18/18 at 17:00 Zolpidem Tartrate (Ambien) 5 mg QHS PRN PO .INSOMNIA; Start 12/18/18 at 17:00 Pantoprazole (Protonix Tab) 40 mg DAILY@06 PO Last administered on 12/22/18at 05:15; Admin Dose 40 MG; Start 12/19/18 at 06:00 Amlodipine Besylate (Norvasc) 5 mg DAILY PO Last administered on 12/21/18at 09:26; Admin Dose 5 MG; Start 12/20/18 at 09:00 Gemfibrozil (Lopid) 600 mg BID PO Last administered on 12/21/18at 20:43; Admin Dose 600 MG; Start 12/19/18 at 21:00 Psyllium Hydrophilic Mucilloid (Metamucil) 1 pkt DAILY PO ; Start 12/20/18 at 13:30 Guaifenesin (Robitussin Liquid Cup) 200 mg Q6 PRN PO COUGH Last administered on 12/22/18at 03:59; Admin Dose 200 MG; Start 12/22/18 at 04:00 Mihir CAMARILLO Dec 22, 2018 08:57
[2018-12-22] MEDS: AMLODIPINE 5 MG TAB PO SCH (09:04)
[2018-12-22] MEDS: GEMFIBROZIL 600 MG TAB PO SCH (09:04)
[2018-12-22] MEDS: PSYLLIUM 28% PACKET PO SCH (09:05)
[2018-12-22] MEDS: ACETAMINOPHEN 325 MG TAB PO PRN (09:10)
[2018-12-22 14:04] VITALS: BP 122/73; PULSE 89; RESP 18
--- NOTE | 2018-12-22 15:24 | PDOCDIS ---
Discharge Instructions DIAGNOSIS Discharge Diagnosis s/p house advancement flap for anal stenosis CONDITION [id number] Patient Condition: [id number] Fair HOME CARE INSTRUCTIONS: [id number] Diet Instructions: [id number] Reduced Sodium ACTIVITY: [id number] Activity Restrictions: [id number] Slowly Increase Activity Rest between Activity Avoid heavy lifting FOLLOW UP/APPOINTMENTS Follow-up Plan f/u Dr CAMARILLO IN 1-2 WEEKS sleeping on side 1-2 weeks f/u PCP in 1 -2 weeks JEANCARLOS MONTOYA MD Dec 22, 2018 15:24
[2018-12-22] MEDS ORDERED: PSYL3.4P11 PO (15:26)
[2018-12-22] MEDS ORDERED: DOCU-144 PO (15:26)
[2018-12-22] MEDS ORDERED: morphine LIQ (10 MG/5 ML) CUP PO PRN (15:30)
--- NOTE | 2018-12-22 19:28 | DS ---
DATE OF ADMISSION: 12/20/2018 DATE OF DISCHARGE: 12/22/2018 HISTORY OF PRESENTING ILLNESS AND HOSPITAL COURSE: The patient is a 62-year-old with a past medical history of hypertension, hyperlipidemia, extensive fibroids and hemorrhoidectomy, subsequently develo ped scarring, multiple serial dilatations without resolution with continued narrowing of the canal, m anaged medically. He requested surgical intervention. He was brought by Dr. Menezes for proctoscopy. Currently, the patient was admitted for anoplasty with house lap of localized adjacent tissue transf er, use of skin flaps of posterior pelvis. The patient was kept in the hospital. The patient was jaimes ving pain control. The patient was also started on stool softeners. Finally, the patient's conditio n got better. He was able to have bowel movement. Per Dr. Camarillo, the patient is stable to be discharg ed home. The patient will need home health for the dressing and wound care change. FINAL DISCHARGE DIAGNOSES: 1. Status post house advancement flap for anal stenosis. 2. Hypertension. 3. Hyperlipidemia. DISCHARGE CONDITION: Stable. Arrangement for home health wound care. DISCHARGE MEDICATIONS: 1. Metamucil p.r.n. constipation. 2. Colace p.r.n. constipation. 3. Tylenol 650 mg p.o. q.6 p.r.n. pain. Continue with home medications which were: 1. Amlodipine 5. 2. Gemfibrozil 600 b.i.d. FOLLOWUP: The patient was instructed to follow up with Dr. Camarillo in 1 to 2 weeks. Dictated By: JEANCARLOS SALCIDO/PENNY Conf#: [id number] DID#: [id number] CC: JASKARAN CAMARILLO MD; NICOLE SANTOYO MD;*EndCC*
== END 2018-12-22 19:15 | disposition home health service (06) | DRG 349 ==
LOC: SDS 06:20 → REC 09:28 → 5EC 15:15 → SDS 15:52 → OBSVTOIN 12-20 16:09
PROVIDERS: ADMIT Surgery; ATTEND Surgery
PROC: 0DQQ0ZZ Repair Anus, Open Approach (ICD-10-PCS; 2018-12-18)
PROC: 0DJD8ZZ Inspection of Lower Intestinal Tract, Via Natural or Artificial Opening Endoscopic (ICD-10-PCS; 2018-12-18)
PROC: 0JXB0ZZ Transfer Perineum Subcutaneous Tissue and Fascia, Open Approach (ICD-10-PCS; principal; 2018-12-18 07:30)
DX: K62.4 Stenosis of anus and rectum (principal); K64.9 Unspecified hemorrhoids; I10 Essential (primary) hypertension; E78.5 Hyperlipidemia, unspecified; K21.9 Gastro-esophageal reflux disease without esophagitis; F17.210 Nicotine dependence, cigarettes, uncomplicated
CPT/HCPCS: 80048; 80053; 83036; 85025; G0378; J0690; J1100; J1170; J2250; J2405; J2710; J3010; J7030

== ENCOUNTER 2019-01-06 02:09 | Inpatient (IN) | payer OTHER ==
[~2019-01-06] VITALS: Ht 165.1 cm; Wt 65.0 kg
[~2019-01-06 02:09] MED LIST changes: -AMLO-145 PO; +AMLO5TAB4 PO; +DOCU-144 PO; -GUAI118L94 PO; -HYDR25SU37 PR; -LORA-186 PO; -PANT40TA4 PO; +PSYL3.4P11 PO; -UDMYL PO
[2019-01-06 03:00] VITALS: BP 129/87; PULSE 89; RESP 18
[2019-01-06 04:19] VITALS: Ht 165.1 cm; Wt 65.0 kg
[2019-01-06] MEDS ORDERED: DOCUSATE SODIUM 100 MG CAP PO PRN (05:30)
[2019-01-06] MEDS ORDERED: AL HYDROX/MG HYDROX/SIMETH 30 ML CUP PO PRN (05:30)
[2019-01-06] MEDS ORDERED: morphine 2 MG INJ IV PRN (05:30)
[2019-01-06] MEDS ORDERED: ONDANSETRON 4 MG INJ IV PRN ×2 (05:30→13:00)
[2019-01-06] MEDS ORDERED: ACETAMINOPHEN 325 MG TAB PO PRN (05:30)
[2019-01-06] MEDS: PANTOPRAZOLE 40 MG INJ IV SCH (05:56)
[2019-01-06] MEDS: DEXTROSE 5%-0.45% NACL 1,000 ML IV SCH ×3 (05:56→23:34)
[2019-01-06 07:46] VITALS: BP 116/75; PULSE 78; RESP 17
[2019-01-06] MEDS ORDERED: CEFTRIAXONE 1 GM INJ IVPB SCH (09:00)
[2019-01-06] MEDS ORDERED: CEFTRIAXONE 1 GM/NS 50 ML IVPB SCH (09:00)
--- NOTE | 2019-01-06 12:48 | QN ---
Documentation Comment seen and examined JEANCARLOS MONTOYA MD Jan 06, 2019 12:48
[2019-01-06] MEDS ORDERED: CEFTRIAXONE 1 GM/50 ML (PMX) 50 ML IVPB SCH (13:00)
[2019-01-06 14:07] VITALS: BP 130/70; PULSE 65; RESP 17
[2019-01-06] MEDS: PIPER-TAZO 3.375 GM IV (PMX) 100 ML IVPB SCH ×2 (14:18→21:49)
--- NOTE | 2019-01-06 14:45 | HP ---
DATE OF ADMISSION: 01/06/2019 REASON FOR ADMISSION: Abdominal pain. HISTORY OF PRESENTING ILLNESS: This is a 63-year-old male with a past medical history of hypertension, hyperlipidemia, history of extensive haemorrhoids , history of annuloplasty with house flap of local laceration and use of skin flaps in 12/2018. At that time, the patient stayed in the hospital for 5 days and was discharged and to follow up with Dr. Gonsalves as an outpatient. According to the patient, he has also noticed some discharge from the anal site after and had seen Dr. Gonsalves twice after that. The patient had a sudden onset of the epigastric abdominal pain and nausea in the morning. The patient was having pain with deep breathing, was having some nausea. Denied any fevers, chills. The patient was taken to [facility]. There, the patient had BMP within normal limit. Sodium was 136, potassium 5.1, chloride 99, bicarbonate 22, BUN of 10, creatinine 0.75. Lipase was normal. The patient had a CT of the abdomen and pelvis that showed abnormal gallbladder wall edema, hepatic steatosis, atherosclerosis, mild dilatation of extrahepatic biliary duct. The patient also had an abdominal ultrasound that showed common bile duct dilatation of 6 mm with stone at the gallbladder neck. The patient was treated with antibiotics and was transferred to [facility] due to insurance reasons. PAST MEDICAL HISTORY: 1. Hypertension. 2. Hyperlipidemia. 3. History of hemorrhoids, status post annuloplasty recently on 12/20/2018. ALLERGIES: NONE. PAST SURGICAL HISTORY: Hemorrhoid surgery x3 and then annuloplasty. SOCIAL HISTORY: Denies any history of smoking, alcohol or any drug use. FAMILY HISTORY: Noncontributory. MEDICATIONS AT HOME: 1. Gemfibrozil. 2. Norvasc. 3. Occasionally takes Protonix. REVIEW OF SYSTEMS: The patient complained of pain in the epigastric region, had some nausea. Denied any chest pain, any shortness of breath, any diarrhea. The patient also is having drainage through at the annuloplasty site. Denies any hematemesis, any melena. Denies any neurological deficits. PHYSICAL EXAMINATION: VITAL SIGNS: Currently, blood pressure 129/87, afebrile, heart rate 89, respirations 18, saturating 98%. GENERAL: The patient is awake, alert, oriented, lying on the side of the bed. HEENT: No scleral icterus. NECK: Supple. No JVD. HEART: Regular rate and rhythm. LUNGS: Clear to auscultation bilaterally. ABDOMEN: Some tenderness present in the right upper quadrant. Positive bowel sounds. EXTREMITIES: No clubbing, cyanosis or edema. RECTAL: On anal region, the patient is status post annuloplasty with multiple stitches on both sides around the anus. The patient has induration and superficial ulcer found at the anal flap. LABORATORY DATA: Show BMP within normal limit. Total bilirubin 0.4, AST 906, ALT 603, alkaline phosphatase 152. White count of 6.0, hemoglobin 13.6, platelet count 305. ASSESSMENT AND PLAN: This is a 63-year-old male who presented with: 1. Right upper quadrant pain, nausea, vomiting with evidence of gallbladder wall edema on the CAT scan and ultrasound shows common bile duct dilatation, 6 mm stone in the gallbladder neck. 2. Abnormal LFTs and alkaline phosphatase secondary to #1, likely secondary to choledocholithiasis. 3. Leukocytosis secondary to #1. 4. History of hypertension. 5. Hyperlipidemia. 6. History of annuloplasty with necrotic ulcer. PLAN: At this period of time, the patient is admitted to med/surg unit. The patient is kept n.p.o., started on IV fluids, IV antibiotic. GI consultation will be obtained. MRCP has been ordered. Dr. Gonsalves has already evaluated the patient. The patient will likely need ERCP. Dr. Gonsalves has also been consulted for the necrotic ulcer at annuloplasty site. Dictated By: JEANCARLOS SALCIDO/PENNY Conf#: [id number] DID#: [id number] CC: HIGINIO ALDRIDGE MD; JASKARAN GONSALVES MD;*EndCC* MTDD
--- NOTE | 2019-01-06 15:09 | CONS ---
DATE OF ADMISSION: 01/06/2019 DATE OF CONSULTATION: 01/06/2019 INDICATION: This is a 63-year-old male with recent admission to an outside hospital ER for cholecyst itis. He was transferred here due to familiarity with myself. He had LFTs that were elevated and ev idence of gallstones on CT scan. He has nonspecific mid epigastric right upper quadrant pain. LABORATORY DATA: LFTs have been elevated into the 600 to 700. White blood cell count is 6.0, hemogl obin 13.6, platelets is 305. Chemistries: Sodium is 140, potassium 4.2, chloride is 102, CO2 of 25, BUN is 13, creatinine is 0.98, glucose is 103, calcium 9.5. T-bilirubin 0.4, AST was 906, ALT 603, alkaline phosphatase 152. Amylase is 66 and lipase is 182. DIAGNOSTIC DATA: CT scan imaging at an outside hospital showed gallstones. PHYSICAL EXAMINATION: VITAL SIGNS: Temperature 98.2, pulse is 78, respiratory rate 17, blood pressure 116/75. ASSESSMENT AND PLAN: This is a 63-year-old male with nonspecific abdominal pain and increased LFTs w ith T-bilirubin being normal with concern for cholecystitis. We will get MRCP to evaluate for his co mmon bile duct as there was concern on the CT scan from the outside hospital. The common bile duct i s upper limits of normal. Otherwise, we will continue IV antibiotics. GI is also consulted. Surger y will continue to follow. Dictated By: JASKARAN CAMARILLO MD SB/NTS Conf#: [id number] DID#: [id number] CC: HIGINIO ALDRIDGE MD;*EndCC*
[2019-01-06] MEDS: metroNIDAZOLE 500 MG/NS (PMX) 100 ML IVPB SCH ×2 (16:47→22:00)
--- NOTE | 2019-01-06 17:45 | PREAC ---
Date/Time of Note Date/Time of Note DATE: 01/06/19 TIME: 17:44 Anesthesia Eval and Record Evaluation Time Pre-Procedure Interview DATE: 01/06/19 TIME: 17:44 Age 63 Sex male NPO: 8 hrs Preoperative diagnosis cholecystitis. Planned procedure ERCP Past Medical History Past Medical History: Includes Cardio: HTN, Dyslipidemia Surgery & Anesthesia Issues No known issue Meds Anticoagulation: No Beta Law within 24 hr: No Reason Beta Law not given: Pt. not on B-Law Active Scripts Psyllium Husk (with Sugar) (Metamucil Packet) 3.4 Gm Powd.pack, 1 PKT PO DAILY PRN for CONSTIPATION for 5 Days Prov:JEANCARLOS MONTOYA MD 12/22/18 Docusate Sodium* (Colace*) 100 Mg Capsule, 100 MG PO BID for constipation, #60 CAP Prov:JEANCARLOS MONTOYA MD 12/22/18 Reported Medications Gemfibrozil* (Gemfibrozil*) 600 Mg Tablet, 600 MG PO BID, TAB 12/18/18 Amlodipine Besylate* (Norvasc*) 5 Mg Tablet, 5 MG PO DAILY, TAB 12/18/18 Current Medications Dextrose/Sodium Chloride 1,000 ml @ 75 mls/hr [id number] IV Last administered on 01/06/19at 05:56; Admin Dose 75 MLS/HR; Start 01/06/19 at 05:30 Pantoprazole (Protonix Iv) 40 mg DAILY@06 IV Last administered on 01/06/19at 05:56; Admin Dose 40 MG; Start 01/06/19 at 06:00 Acetaminophen (Tylenol Tab) 650 mg Q6H PRN PO MILD PAIN(1-3)OR ELEVATED TEMP; Start 01/06/19 at 05:30 Ondansetron HCl (Zofran Inj) 4 mg Q6H PRN IV NAUSEA AND/OR VOMITING; Start 01/06/19 at 05:30 Morphine Sulfate (morphine) 2 mg Q4H PRN IV SEVERE PAIN LEVEL 7-10; Start 01/06/19 at 05:30 Docusate Sodium (Colace) 100 mg BID PRN PO CONSTIPATION; Start 01/06/19 at 05:30 Al Hydrox/Mg Hydrox/Simethicone (Mag-Al Plus) 30 ml Q6H PRN PO GASTROINTESTINAL UPSET; Start 01/06/19 at 05:30 Influenza Virus Vaccine Quadrival (Fluzone) 0.5 ml ONCE ONCE IM* ; Start 01/08/19 at 10:00; Stop 01/08/19 at 10:01 Metronidazole 100 ml @ 100 mls/hr Q8 IVPB Last administered on 01/06/19at 16:47; Admin Dose 100 MLS/HR; Start 01/06/19 at 14:30 Ondansetron HCl (Zofran Inj) 4 mg Q4H PRN IV NAUSEA AND/OR VOMITING; Start 01/06/19 at 13:00 Piperacillin Sod/ Tazobactam Sod 100 ml @ 200 mls/hr Q8 IVPB Last administered on 01/06/19at 14:18; Admin Dose 200 MLS/HR; Start 01/06/19 at 14:00 Meds reviewed: Yes Allergies Coded Allergies: No Known Drug Allergy (Verified Allergy, Unknown, 12/18/18) Allergies Reviewed: Yes Labs/Studies Labs Reviewed: Reviewed by anesthesiologist Result Diagram: 01/06/19 0642 01/06/19 0642 Laboratory Tests 01/06/19 06:42 test: N/A Studies: ECG (SR), CXR (Atherosclerotic calcifications in the thoracic aorta.) Pre-procedure Exam Last vitals Vital Signs Date Temp Pulse Resp B/P (MAP) Pulse Ox O2 O2 Flow FiO2 Time Delivery Rate 01/06/19 98.0 65 17 130/70 98 Room Air 14:07 (90) Nasal Cannula Airway: Adequate mouth opening Mallampati: Mallampati II Teeth: Normal Lung: Normal Heart: Normal ASA Physical Status ASA physical status: 2 Emergency: None Planned Anesthetic General/MAC: ETT Pre-operative Attestations Prior to commencing anesthesia and surgery, the patient was re-evaluated, there was verification of: *The patient's identity *The results of appropriate recent lab work and preoperative vital signs *The above evaluation not changing prior to induction *Anesthetic plan, risk benefits, alternative and complications discussed with patient/family; questions answered; patient/family understands, accepts and wishes to proceed. SHARI SADLER Jan 06, 2019 17:45
--- NOTE | 2019-01-06 18:38 | CONS ---
DATE OF ADMISSION: 01/06/2019 DATE OF CONSULTATION: TYPE OF CONSULTATION: Gastroenterology. HISTORY OF PRESENT ILLNESS: The patient is a 63-year-old male who developed acute abdominal pain con fined to the right upper quadrant and epigastric area associated with nausea and vomiting. The pain was on a scale of 1 to 10 of 10. This happened after having had last meal. 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 He was taken to the [facility]. CAT scan was done. Diagnosis of gallstone and cholecystitis was made. His LFTs were el evated, but not much. Now, the LFT has gone up to 900 SGOT, 603 SGPT, alkaline phosphatase is elevat ed at 152. Bilirubin is normal. INR also was normal. He had MRCP done which does not show any ston e. The patient's coagulation is within normal limit. WBC is within normal limits. IMPRESSION: 1. Biliary colic and gallstone. 2. Abnormal liver function tests most probably related to bile duct stone. Though the MRCP is negat nemo, it can miss 20% of stone. 3. Hypertension. 4. Hyperlipidemia. 5. History of hemorrhoid. PLAN: At this point, continue present care. If LFT keeps going up, then I will subject the patient for ERCP. As described, MRCP can miss 20% of the stone in the ampullary area. Continue antibiotics and pain management. Dictated By: STALIN GATES/NTS Conf#: [id number] DID#: [id number] CC: JEANCARLOS MONTOYA; HIGINIO ALDRIDGE MD; JASKARAN CAMARILLO MD;*EndCC*
[2019-01-06 20:00] VITALS: BP 133/79; PULSE 69; RESP 18
[2019-01-07] MEDS: metroNIDAZOLE 500 MG/NS (PMX) 100 ML IVPB SCH ×2 (00:42→09:14)
[2019-01-07 02:00] VITALS: BP 136/85; PULSE 64; RESP 16
[2019-01-07] MEDS: PANTOPRAZOLE 40 MG INJ IV SCH (05:58)
[2019-01-07] MEDS: PIPER-TAZO 3.375 GM IV (PMX) 100 ML IVPB SCH ×3 (05:58→22:19)
[2019-01-07 07:56] VITALS: BP 111/60; PULSE 67; RESP 18
--- NOTE | 2019-01-07 10:09 | PN ---
Date/Time of Note Date/Time of Note DATE: 01/07/19 TIME: 10:06 Assessment/Plan VTE Prophylaxis Risk score (from Ns)>0 risk: 2 SCD applied (from Ns): Yes Pharmacological prophylaxis: NA/contraindicated Pharm contraindication: low risk/ambulating Lines/Catheters [facility] (from [facility]): Peripheral IV Assessment/Plan Assessment/Plan 63-year-old male who presented with: 1. Right upper quadrant pain, nausea, vomiting with evidence of gallbladder wall edema on the CAT scan and ultrasound shows common bile duct dilatation, 6 mm stone in the gallbladder neck. MRCP neg 2. Abnormal LFTs and alkaline phosphatase secondary to #1, likely secondary to choledocholithiasis. 3. Leukocytosis secondary to #1. 4. History of hypertension. 5. Hyperlipidemia. 6. History of annuloplasty with necrotic ulcer. Plan -Abdominal pain is improved LFTs have improved -MRCP has a possibility of missing stones questionable ERCP per GI -Continue n.p.o. for now -IV fluids, iv zosyn -Follow with GI and surgery Dr. Gates recommendations -Wound care consult also for ulcer, Dr Gonsalves following Result Diagram: 01/07/199 01/07/199 Results 24hrs Laboratory Tests Test 01/06/19 13:58 01/07/19 04:49 Prothrombin Time 12.7 Prothrombin Time Ratio 1.0 INR International Normalized Ratio 0.94 White Blood Count 4.4 #L Red Blood Count 4.67 L Hemoglobin 13.1 L Hematocrit 38.9 L Mean Corpuscular Volume 83.3 Mean Corpuscular Hemoglobin 28.1 L Mean Corpuscular Hemoglobin Concent 33.7 Red Cell Distribution Width 12.4 Platelet Count 270 Mean Platelet Volume 11.2 H Immature Granulocytes % 0.200 Neutrophils % 55.5 Lymphocytes % 26.1 Monocytes % 7.4 Eosinophils % 10.1 H Basophils % 0.7 Nucleated Red Blood Cells % 0.0 Immature Granulocytes # 0.010 Neutrophils # 2.5 Lymphocytes # 1.2 Monocytes # 0.3 Eosinophils # 0.5 Basophils # 0.0 Nucleated Red Blood Cells # 0.0 Sodium Level 139 Potassium Level 3.8 Chloride Level 103 Carbon Dioxide Level 26 Anion Gap 10 Blood Urea Nitrogen 9 Creatinine 0.88 Est Glomerular Filtrat Rate mL/min > 60 Glucose Level 113 Calcium Level 9.3 Phosphorus Level 4.0 Magnesium Level 2.2 Total Bilirubin 0.5 Direct Bilirubin 0.00 Indirect Bilirubin 0.5 Aspartate Amino Transf (AST/SGOT) 394 #H Alanine Aminotransferase (ALT/SGPT) 535 H Alkaline Phosphatase 164 H Total Protein 7.4 Albumin 4.0 Globulin 3.40 H Albumin/Globulin Ratio 1.17 Subjective 24 Hr Interval Summary Free Text/Dictation Patient slightly feels better today Abdominal pain is improved Exam/Review of Systems Exam Vitals Vital Signs Date Temp Pulse Resp B/P (MAP) Pulse Ox O2 O2 Flow FiO2 Time Delivery Rate 01/07/19 98.3 67 18 111/60 97 Room Air 07:56 (77) Intake and Output 01/06/19 01/06/19 01/07/19 1515:00 23:00 07:00 IntakeIntake Total 150 ml 800 ml 1050 ml OutputOutput Total 400 ml 400 ml 1500 ml BalanceBalance -250 ml 400 ml -450 ml Exam GENERAL: The patient is awake, alert, oriented, lying on the side of the bed. HEENT: No scleral icterus. NECK: Supple. No JVD. HEART: Regular rate and rhythm. LUNGS: Clear to auscultation bilaterally. ABDOMEN: Some tenderness present in the right upper quadrant. Positive bowel sounds. EXTREMITIES: No clubbing, cyanosis or edema. RECTAL: On anal region, the patient is status post annuloplasty with multiple karine on both sides around the anus. The patient has induration and superficial ulcer found at the anal flap. Results Results 24hrs Laboratory Tests Test 01/06/19 13:58 01/07/19 04:49 Prothrombin Time 12.7 Prothrombin Time Ratio 1.0 INR International Normalized Ratio 0.94 White Blood Count 4.4 #L Red Blood Count 4.67 L Hemoglobin 13.1 L Hematocrit 38.9 L Mean Corpuscular Volume 83.3 Mean Corpuscular Hemoglobin 28.1 L Mean Corpuscular Hemoglobin Concent 33.7 Red Cell Distribution Width 12.4 Platelet Count 270 Mean Platelet Volume 11.2 H Immature Granulocytes % 0.200 Neutrophils % 55.5 Lymphocytes % 26.1 Monocytes % 7.4 Eosinophils % 10.1 H Basophils % 0.7 Nucleated Red Blood Cells % 0.0 Immature Granulocytes # 0.010 Neutrophils # 2.5 Lymphocytes # 1.2 Monocytes # 0.3 Eosinophils # 0.5 Basophils # 0.0 Nucleated Red Blood Cells # 0.0 Sodium Level 139 Potassium Level 3.8 Chloride Level 103 Carbon Dioxide Level 26 Anion Gap 10 Blood Urea Nitrogen 9 Creatinine 0.88 Est Glomerular Filtrat Rate mL/min > 60 Glucose Level 113 Calcium Level 9.3 Phosphorus Level 4.0 Magnesium Level 2.2 Total Bilirubin 0.5 Direct Bilirubin 0.00 Indirect Bilirubin 0.5 Aspartate Amino Transf (AST/SGOT) 394 #H Alanine Aminotransferase (ALT/SGPT) 535 H Alkaline Phosphatase 164 H Total Protein 7.4 Albumin 4.0 Globulin 3.40 H Albumin/Globulin Ratio 1.17 Medications Medication Current Medications Dextrose/Sodium Chloride 1,000 ml @ 75 mls/hr [id number] IV Last administered on 01/06/19at 23:34; Admin Dose 75 MLS/HR; Start 01/06/19 at 05:30 Pantoprazole (Protonix Iv) 40 mg DAILY@06 IV Last administered on 01/07/19at 05:58; Admin Dose 40 MG; Start 01/06/19 at 06:00 Acetaminophen (Tylenol Tab) 650 mg Q6H PRN PO MILD PAIN(1-3)OR ELEVATED TEMP; Start 01/06/19 at 05:30 Ondansetron HCl (Zofran Inj) 4 mg Q6H PRN IV NAUSEA AND/OR VOMITING; Start 01/06/19 at 05:30 Morphine Sulfate (morphine) 2 mg Q4H PRN IV SEVERE PAIN LEVEL 7-10; Start 01/06/19 at 05:30 Docusate Sodium (Colace) 100 mg BID PRN PO CONSTIPATION; Start 01/06/19 at 05:30 Al Hydrox/Mg Hydrox/Simethicone (Mag-Al Plus) 30 ml Q6H PRN PO GASTROINTESTINAL UPSET; Start 01/06/19 at 05:30 Influenza Virus Vaccine Quadrival (Fluzone) 0.5 ml ONCE ONCE IM* ; Start 01/08/19 at 10:00; Stop 01/08/19 at 10:01 Ondansetron HCl (Zofran Inj) 4 mg Q4H PRN IV NAUSEA AND/OR VOMITING; Start 01/06/19 at 13:00 Piperacillin Sod/ Tazobactam Sod 100 ml @ 200 mls/hr Q8 IVPB Last administered on 01/07/19at 05:58; Admin Dose 200 MLS/HR; Start 01/06/19 at 14:00 Metronidazole 100 ml @ 100 mls/hr Q8 IVPB Last administered on 01/07/19at 09:14; Admin Dose 100 MLS/HR; Start 01/07/19 at 01:00 JEANCARLOS MONTOYA MD Jan 07, 2019 10:09
[2019-01-07] MEDS ORDERED: IOHEXOL 300MG/ML 30 ML BTL ONE (11:05)
[2019-01-07] MEDS ORDERED: INDOMETHACIN 50 MG SUPP PR ONE (11:30)
--- NOTE | 2019-01-07 12:02 | CONS ---
Assessment/Plan Assessment/Plan Assessment/Plan (Daily) IMPRESSION: 1. Biliary colic and gallstone. 2. Abnormal liver function tests most probably related to bile duct stone. Though the MRCP is negative, it can miss 20% of stone. 3. Hypertension. 4. Hyperlipidemia. 5. History of hemorrhoid. Plan I reviewed the MRCP report with Dr. Cobb. There was no stone. Bile duct is mildly dilated. Since the patient has absolute no abdominal pain no nausea no vomiting and all the LFTs are coming down it appears patient has passed a stone. Will cancel ERCP for the time being and monitor LFT. Resume diet Consultation Date/Type/Reason Admit Date/Time Jan 06, 2019 at 03:30 Initial Consult Date Date/Time of Note DATE: 01/07/19 TIME: 12:00 24 HR Interval Summary Free Text/Dictation absolute no abdominal pain, no nausea no vomiting Constitutional: no complaints, improved Exam/Review of Systems Exam Vitals Vital Signs Date Temp Pulse Resp B/P (MAP) Pulse Ox O2 O2 Flow FiO2 Time Delivery Rate 01/07/19 98.3 67 18 111/60 97 Room Air 07:56 (77) Intake and Output 01/06/19 01/06/19 01/07/19 1515:00 23:00 07:00 IntakeIntake Total 150 ml 800 ml 1050 ml OutputOutput Total 400 ml 400 ml 1500 ml BalanceBalance -250 ml 400 ml -450 ml Constitutional: alert, oriented, well developed Psych: no complaints, nl mood/affect Head: normocephalic, atraumatic Eyes: nl conjunctiva, EOMI, nl lids, nl sclera, PERRL ENMT: nl external ears & nose, nl lips & teeth, nl nasal mucosa & septum Neck: supple, non-tender Respiratory: clear to auscultation, normal air movement Cardiovascular: regular rate and rhythm, nl pulses Gastrointestinal: soft, nl liver, spleen, non-tender Musculoskeletal: nl extremities to inspection, nl gait and stance Extremities: normal pulses Neurological: FOOD CART ATTENDANT II-XII intact, nl mental status, nl speech, nl strength Skin: nl turgor; No rash or lesions Lymph: nl lymph nodes Results Result Diagram: 01/07/19 0449 01/07/19 0449 Results 24hrs Laboratory Tests Test 01/06/19 13:58 01/07/19 04:49 Prothrombin Time 12.7 Prothrombin Time Ratio 1.0 INR International Normalized Ratio 0.94 White Blood Count 4.4 #L Red Blood Count 4.67 L Hemoglobin 13.1 L Hematocrit 38.9 L Mean Corpuscular Volume 83.3 Mean Corpuscular Hemoglobin 28.1 L Mean Corpuscular Hemoglobin Concent 33.7 Red Cell Distribution Width 12.4 Platelet Count 270 Mean Platelet Volume 11.2 H Immature Granulocytes % 0.200 Neutrophils % 55.5 Lymphocytes % 26.1 Monocytes % 7.4 Eosinophils % 10.1 H Basophils % 0.7 Nucleated Red Blood Cells % 0.0 Immature Granulocytes # 0.010 Neutrophils # 2.5 Lymphocytes # 1.2 Monocytes # 0.3 Eosinophils # 0.5 Basophils # 0.0 Nucleated Red Blood Cells # 0.0 Sodium Level 139 Potassium Level 3.8 Chloride Level 103 Carbon Dioxide Level 26 Anion Gap 10 Blood Urea Nitrogen 9 Creatinine 0.88 Est Glomerular Filtrat Rate mL/min > 60 Glucose Level 113 Calcium Level 9.3 Phosphorus Level 4.0 Magnesium Level 2.2 Total Bilirubin 0.5 Direct Bilirubin 0.00 Indirect Bilirubin 0.5 Aspartate Amino Transf (AST/SGOT) 394 #H Alanine Aminotransferase (ALT/SGPT) 535 H Alkaline Phosphatase 164 H Total Protein 7.4 Albumin 4.0 Globulin 3.40 H Albumin/Globulin Ratio 1.17 Medications Medication Current Medications Dextrose/Sodium Chloride 1,000 ml @ 75 mls/hr [id number] IV Last administered on 01/06/19at 23:34; Admin Dose 75 MLS/HR; Start 01/06/19 at 05:30 Pantoprazole (Protonix Iv) 40 mg DAILY@06 IV Last administered on 01/07/19at 05:58; Admin Dose 40 MG; Start 01/06/19 at 06:00 Acetaminophen (Tylenol Tab) 650 mg Q6H PRN PO MILD PAIN(1-3)OR ELEVATED TEMP; Start 01/06/19 at 05:30 Ondansetron HCl (Zofran Inj) 4 mg Q6H PRN IV NAUSEA AND/OR VOMITING; Start 01/06/19 at 05:30 Morphine Sulfate (morphine) 2 mg Q4H PRN IV SEVERE PAIN LEVEL 7-10; Start 01/06/19 at 05:30 Docusate Sodium (Colace) 100 mg BID PRN PO CONSTIPATION; Start 01/06/19 at 05:30 Al Hydrox/Mg Hydrox/Simethicone (Mag-Al Plus) 30 ml Q6H PRN PO GASTROINTESTINAL UPSET; Start 01/06/19 at 05:30 Influenza Virus Vaccine Quadrival (Fluzone) 0.5 ml ONCE ONCE IM* ; Start 01/08/19 at 10:00; Stop 01/08/19 at 10:01 Ondansetron HCl (Zofran Inj) 4 mg Q4H PRN IV NAUSEA AND/OR VOMITING; Start 01/06/19 at 13:00 Piperacillin Sod/ Tazobactam Sod 100 ml @ 200 mls/hr Q8 IVPB Last administered on 01/07/19at 05:58; Admin Dose 200 MLS/HR; Start 01/06/19 at 14:00 STALIN SAGASTUME MD Jan 07, 2019 12:02
--- NOTE | 2019-01-07 15:32 | RADRPT ---
Vent Rate: 64 bpm RR Interval: 0 msec MS Interval: 180 msec QRS Duration: 78 msec QT Interval: 402 msec QTC Interval: 414 msec P-R-T [place]: 50 - -7 - 42 degrees Normal sinus rhythm Normal ECG Electronically Signed By: Torito Shore
[2019-01-07 16:00] VITALS: BP 109/70; PULSE 78; RESP 18
[2019-01-07] MEDS: DEXTROSE 5%-0.45% NACL 1,000 ML IV SCH (17:44)
[2019-01-07 19:10] VITALS: BP 139/85; PULSE 68; RESP 20
[2019-01-08 02:55] VITALS: BP 135/71; PULSE 65; RESP 20
[2019-01-08] MEDS: PANTOPRAZOLE 40 MG INJ IV SCH (06:33)
[2019-01-08] MEDS: PIPER-TAZO 3.375 GM IV (PMX) 100 ML IVPB SCH ×3 (06:33→21:52)
[2019-01-08 07:51] VITALS: BP 121/64; PULSE 64; RESP 18
--- NOTE | 2019-01-08 09:37 | PN ---
Date/Time of Note Date/Time of Note DATE: 01/08/19 TIME: 09:37 Assessment/Plan VTE Prophylaxis Risk score (from Ns)>0 risk: 3 SCD applied (from Ns): Yes Pharmacological prophylaxis: NA/contraindicated Pharm contraindication: low risk/ambulating Lines/Catheters IV Catheter Type (from [facility]): Peripheral IV Assessment/Plan Hospital Course 63-year-old male who presented with: 1. Right upper quadrant pain, nausea, vomiting with evidence of gallbladder wall edema on the CAT scan and ultrasound shows common bile duct dilatation, 6 mm stone in the gallbladder neck. MRCP neg patient has symptomatic gallstones 2. Abnormal LFTs and alkaline phosphatase secondary to #1, likely secondary to choledocholithiasis. 3. Leukocytosis secondary to #1. 4. History of hypertension. 5. Hyperlipidemia. 6. History of annuloplasty with ulcer. Plan -Abdominal pain is improved LFTs have improved -ERCP canceled that the abdominal pain is improved and LFTs are trending down -Cholecystectomy tomorrow -IV fluids, iv zosyn -Follow with GI and surgery Dr. Gates recommendations -Wound care consult also for ulcer, Dr Gonsalves following Result Diagram: 01/08/19 0441 01/08/19 0441 Results 24hrs Laboratory Tests Test 01/08/19 04:41 White Blood Count 5.2 Red Blood Count 4.56 L Hemoglobin 12.8 L Hematocrit 37.6 L Mean Corpuscular Volume 82.5 Mean Corpuscular Hemoglobin 28.1 L Mean Corpuscular Hemoglobin Concent 34.0 Red Cell Distribution Width 12.5 Platelet Count 277 Mean Platelet Volume 11.6 H Immature Granulocytes % 0.000 L Neutrophils % 45.9 Lymphocytes % 32.0 Monocytes % 9.6 Eosinophils % 11.7 H Basophils % 0.8 Nucleated Red Blood Cells % 0.0 Immature Granulocytes # 0.000 Neutrophils # 2.4 Lymphocytes # 1.7 Monocytes # 0.5 Eosinophils # 0.6 H Basophils # 0.0 Nucleated Red Blood Cells # 0.0 Sodium Level 140 Potassium Level 4.0 Chloride Level 105 Carbon Dioxide Level 25 Anion Gap 10 Blood Urea Nitrogen 15 Creatinine 0.94 Est Glomerular Filtrat Rate mL/min > 60 Glucose Level 124 Calcium Level 9.4 Phosphorus Level 4.1 Magnesium Level 2.1 Total Bilirubin 0.2 Direct Bilirubin 0.00 Indirect Bilirubin 0.2 Aspartate Amino Transf (AST/SGOT) 126 #H Alanine Aminotransferase (ALT/SGPT) 329 H Alkaline Phosphatase 122 H Total Protein 7.0 Albumin 3.8 Globulin 3.20 Albumin/Globulin Ratio 1.18 Subjective 24 Hr Interval Summary Free Text/Dictation Pain is improved. Exam/Review of Systems Exam Vitals Vital Signs Date Temp Pulse Resp B/P (MAP) Pulse Ox O2 O2 Flow FiO2 Time Delivery Rate 01/08/19 97.7 64 18 121/64 94 Room Air 07:51 (83) Intake and Output 01/07/19 01/07/19 01/08/19 1515:00 23:00 07:00 IntakeIntake Total 970 ml 860 ml OutputOutput Total 500 ml BalanceBalance 470 ml 860 ml Exam Exam GENERAL: The patient is awake, alert, oriented, lying on the side of the bed. HEENT: No scleral icterus. NECK: Supple. No JVD. HEART: Regular rate and rhythm. LUNGS: Clear to auscultation bilaterally. ABDOMEN: Some tenderness present in the right upper quadrant. Positive bowel sounds. EXTREMITIES: No clubbing, cyanosis or edema. RECTAL: On anal region, the patient is status post annuloplasty with multiple karine on both sides around the anus. The patient has induration and superficial ulcer found at the anal flap. Results Results 24hrs Laboratory Tests Test 01/08/19 04:41 White Blood Count 5.2 Red Blood Count 4.56 L Hemoglobin 12.8 L Hematocrit 37.6 L Mean Corpuscular Volume 82.5 Mean Corpuscular Hemoglobin 28.1 L Mean Corpuscular Hemoglobin Concent 34.0 Red Cell Distribution Width 12.5 Platelet Count 277 Mean Platelet Volume 11.6 H Immature Granulocytes % 0.000 L Neutrophils % 45.9 Lymphocytes % 32.0 Monocytes % 9.6 Eosinophils % 11.7 H Basophils % 0.8 Nucleated Red Blood Cells % 0.0 Immature Granulocytes # 0.000 Neutrophils # 2.4 Lymphocytes # 1.7 Monocytes # 0.5 Eosinophils # 0.6 H Basophils # 0.0 Nucleated Red Blood Cells # 0.0 Sodium Level 140 Potassium Level 4.0 Chloride Level 105 Carbon Dioxide Level 25 Anion Gap 10 Blood Urea Nitrogen 15 Creatinine 0.94 Est Glomerular Filtrat Rate mL/min > 60 Glucose Level 124 Calcium Level 9.4 Phosphorus Level 4.1 Magnesium Level 2.1 Total Bilirubin 0.2 Direct Bilirubin 0.00 Indirect Bilirubin 0.2 Aspartate Amino Transf (AST/SGOT) 126 #H Alanine Aminotransferase (ALT/SGPT) 329 H Alkaline Phosphatase 122 H Total Protein 7.0 Albumin 3.8 Globulin 3.20 Albumin/Globulin Ratio 1.18 Medications Medication Current Medications Dextrose/Sodium Chloride 1,000 ml @ 75 mls/hr [id number] IV Last administered on 01/07/19at 17:44; Admin Dose 75 MLS/HR; Start 01/06/19 at 05:30 Pantoprazole (Protonix Iv) 40 mg DAILY@06 IV Last administered on 01/08/19 06:33; Admin Dose 40 MG; Start 01/06/19 at 06:00 Acetaminophen (Tylenol Tab) 650 mg Q6H PRN PO MILD PAIN(1-3)OR ELEVATED TEMP; Start 01/06/19 at 05:30 Ondansetron HCl (Zofran Inj) 4 mg Q6H PRN IV NAUSEA AND/OR VOMITING; Start 01/06/19 at 05:30 Morphine Sulfate (morphine) 2 mg Q4H PRN IV SEVERE PAIN LEVEL 7-10; Start 01/06/19 at 05:30 Docusate Sodium (Colace) 100 mg BID PRN PO CONSTIPATION; Start 01/06/19 at 05:30 Al Hydrox/Mg Hydrox/Simethicone (Mag-Al Plus) 30 ml Q6H PRN PO GASTROINTESTINAL UPSET; Start 01/06/19 at 05:30 Influenza Virus Vaccine Quadrival (Fluzone) 0.5 ml ONCE ONCE IM* ; Start 01/08/19 at 10:00; Stop 01/08/19 at 10:01 Ondansetron HCl (Zofran Inj) 4 mg Q4H PRN IV NAUSEA AND/OR VOMITING; Start 01/06/19 at 13:00 Piperacillin Sod/ Tazobactam Sod 100 ml @ 200 mls/hr Q8 IVPB Last administered on 01/08/19at 06:33; Admin Dose 200 MLS/HR; Start 01/06/19 at 14:00 JEANCARLOS MONTOYA MD Jan 08, 2019 09:37
[2019-01-08] MEDS ORDERED: INFLUENZA VIRUS VACCINE 0.5 ML (DISPENSING) IM* ONE (10:00)
[2019-01-08] MEDS: DEXTROSE 5%-0.45% NACL 1,000 ML IV SCH (10:15)
--- NOTE | 2019-01-08 10:26 | PN ---
Date/Time of Note Date/Time of Note DATE: 01/08/19 TIME: 10:22 Assessment/Plan VTE Prophylaxis Risk score (from Ns)>0 risk: 3 SCD applied (from Nsg): Yes Pharmacological prophylaxis: other Lines/Catheters IV Catheter Type (from Nrs): Peripheral IV Assessment/Plan Assessment/Plan symptomatic gallstones now improved and tolerating diet patient unsure about getting his gallbladder out house sacral flap superficial necrosis with drainage but BM still of normal caliber will continue iv abx and patient wants to talk to GI and decide or surgery. if patient refuses surgery (lap kori) he can be discharged home on two weeks of augment 875 mg bid and f/u in office with me in 2 weeks. Result Diagram: 01/08/1944001/08/19440 Results 24hrs Laboratory Tests Test 01/08/19 04:41 White Blood Count 5.2 Red Blood Count 4.56 L Hemoglobin 12.8 L Hematocrit 37.6 L Mean Corpuscular Volume 82.5 Mean Corpuscular Hemoglobin 28.1 L Mean Corpuscular Hemoglobin Concent 34.0 Red Cell Distribution Width 12.5 Platelet Count 277 Mean Platelet Volume 11.6 H Immature Granulocytes % 0.000 L Neutrophils % 45.9 Lymphocytes % 32.0 Monocytes % 9.6 Eosinophils % 11.7 H Basophils % 0.8 Nucleated Red Blood Cells % 0.0 Immature Granulocytes # 0.000 Neutrophils # 2.4 Lymphocytes # 1.7 Monocytes # 0.5 Eosinophils # 0.6 H Basophils # 0.0 Nucleated Red Blood Cells # 0.0 Sodium Level 140 Potassium Level 4.0 Chloride Level 105 Carbon Dioxide Level 25 Anion Gap 10 Blood Urea Nitrogen 15 Creatinine 0.94 Est Glomerular Filtrat Rate mL/min > 60 Glucose Level 124 Calcium Level 9.4 Phosphorus Level 4.1 Magnesium Level 2.1 Total Bilirubin 0.2 Direct Bilirubin 0.00 Indirect Bilirubin 0.2 Aspartate Amino Transf (AST/SGOT) 126 #H Alanine Aminotransferase (ALT/SGPT) 329 H Alkaline Phosphatase 122 H Total Protein 7.0 Albumin 3.8 Globulin 3.20 Albumin/Globulin Ratio 1.18 Subjective 24 Hr Interval Summary Free Text/Dictation patient has some questions and is wondering if he needs his gallbladder out. MRCP shows no choledocholithiasis however still gallstones are present. patient is requesting another gallbladder u/s even though this is not entirely nece ssary. To allay their concerns another u/s is ordered. they will decide if they want to proceed with lap kori this hospitalization or not. Exam/Review of Systems Exam Vitals Vital Signs Date Temp Pulse Resp B/P (MAP) Pulse Ox O2 O2 Flow FiO2 Time Delivery Rate 01/08/19 97.7 64 18 121/64 94 Room Air 07:51 (83) Intake and Output 01/07/19 01/07/19 01/08/19 1515:00 23:00 07:00 IntakeIntake Total 970 ml 860 ml OutputOutput Total 500 ml BalanceBalance 470 ml 860 ml Exam some drainage from house sacral flap minimal ruq pain Results Results 24hrs Laboratory Tests Test 01/08/19 04:41 White Blood Count 5.2 Red Blood Count 4.56 L Hemoglobin 12.8 L Hematocrit 37.6 L Mean Corpuscular Volume 82.5 Mean Corpuscular Hemoglobin 28.1 L Mean Corpuscular Hemoglobin Concent 34.0 Red Cell Distribution Width 12.5 Platelet Count 277 Mean Platelet Volume 11.6 H Immature Granulocytes % 0.000 L Neutrophils % 45.9 Lymphocytes % 32.0 Monocytes % 9.6 Eosinophils % 11.7 H Basophils % 0.8 Nucleated Red Blood Cells % 0.0 Immature Granulocytes # 0.000 Neutrophils # 2.4 Lymphocytes # 1.7 Monocytes # 0.5 Eosinophils # 0.6 H Basophils # 0.0 Nucleated Red Blood Cells # 0.0 Sodium Level 140 Potassium Level 4.0 Chloride Level 105 Carbon Dioxide Level 25 Anion Gap 10 Blood Urea Nitrogen 15 Creatinine 0.94 Est Glomerular Filtrat Rate mL/min > 60 Glucose Level 124 Calcium Level 9.4 Phosphorus Level 4.1 Magnesium Level 2.1 Total Bilirubin 0.2 Direct Bilirubin 0.00 Indirect Bilirubin 0.2 Aspartate Amino Transf (AST/SGOT) 126 #H Alanine Aminotransferase (ALT/SGPT) 329 H Alkaline Phosphatase 122 H Total Protein 7.0 Albumin 3.8 Globulin 3.20 Albumin/Globulin Ratio 1.18 Medications Medication Current Medications Dextrose/Sodium Chloride 1,000 ml @ 75 mls/hr [id number] IV Last administered on 01/08/19at 10:15; Admin Dose 75 MLS/HR; Start 01/06/19 at 05:30 Pantoprazole (Protonix Iv) 40 mg DAILY@06 IV Last administered on 01/08/19at 06:33; Admin Dose 40 MG; Start 01/06/19 at 06:00 Acetaminophen (Tylenol Tab) 650 mg Q6H PRN PO MILD PAIN(1-3)OR ELEVATED TEMP; Start 01/06/19 at 05:30 Ondansetron HCl (Zofran Inj) 4 mg Q6H PRN IV NAUSEA AND/OR VOMITING; Start 01/06/19 at 05:30 Morphine Sulfate (morphine) 2 mg Q4H PRN IV SEVERE PAIN LEVEL 7-10; Start 01/06/19 at 05:30 Docusate Sodium (Colace) 100 mg BID PRN PO CONSTIPATION; Start 01/06/19 at 05:30 Al Hydrox/Mg Hydrox/Simethicone (Mag-Al Plus) 30 ml Q6H PRN PO GASTROINTESTINAL UPSET; Start 01/06/19 at 05:30 Ondansetron HCl (Zofran Inj) 4 mg Q4H PRN IV NAUSEA AND/OR VOMITING; Start 01/06/19 at 13:00 Piperacillin Sod/ Tazobactam Sod 100 ml @ 200 mls/hr Q8 IVPB Last administered on 01/08/19at 06:33; Admin Dose 200 MLS/HR; Start 01/06/19 at 14:00 Influenza Virus Vaccine Quadrival (Fluzone) 0.5 ml ONCE ONCE IM* ; Start 01/09/19 at 10:30; Stop 01/09/19 at 10:31; Status UNMihir GORDON Jan 08, 2019 10:26
[2019-01-08 14:19] VITALS: BP 140/83; PULSE 76; RESP 18
--- NOTE | 2019-01-08 15:06 | PREAC ---
Date/Time of Note Date/Time of Note DATE: 01/08/19 TIME: 15:05 Anesthesia Eval and Record Evaluation Time Pre-Procedure Interview DATE: 01/08/19 TIME: 15:05 Age 63 Sex male NPO: 8 hrs Preoperative diagnosis Biliary colic and gallstone Planned procedure LAPAROSCOPIC CHOLECYSTECTOMY POSS OPEN Past Medical History Past Medical History: Includes Cardio: HTN, Dyslipidemia Surgery & Anesthesia Issues No known issue Meds Anticoagulation: No Beta Law within 24 hr: No Reason Beta Law not given: Pt. not on B-Law Active Scripts Psyllium Husk (with Sugar) (Metamucil Packet) 3.4 Gm Powd.pack, 1 PKT PO DAILY PRN for CONSTIPATION for 5 Days Prov:JEANCARLOS MONTOYA MD 12/22/18 Docusate Sodium* (Colace*) 100 Mg Capsule, 100 MG PO BID for constipation, #60 CAP Prov:JEANCARLOS MONTOYA MD 12/22/18 Reported Medications Gemfibrozil* (Gemfibrozil*) 600 Mg Tablet, 600 MG PO BID, TAB 12/18/18 Amlodipine Besylate* (Norvasc*) 5 Mg Tablet, 5 MG PO DAILY, TAB 12/18/18 Current Medications Dextrose/Sodium Chloride 1,000 ml @ 75 mls/hr [id number] IV Last administered on 01/08/19at 10:15; Admin Dose 75 MLS/HR; Start 01/06/19 at 05:30 Pantoprazole (Protonix Iv) 40 mg DAILY@06 IV Last administered on 01/08/19at 06:33; Admin Dose 40 MG; Start 01/06/19 at 06:00 Acetaminophen (Tylenol Tab) 650 mg Q6H PRN PO MILD PAIN(1-3)OR ELEVATED TEMP; Start 01/06/19 at 05:30 Ondansetron HCl (Zofran Inj) 4 mg Q6H PRN IV NAUSEA AND/OR VOMITING; Start 01/06/19 at 05:30 Morphine Sulfate (morphine) 2 mg Q4H PRN IV SEVERE PAIN LEVEL 7-10; Start 01/06/19 at 05:30 Docusate Sodium (Colace) 100 mg BID PRN PO CONSTIPATION; Start 01/06/19 at 05:30 Al Hydrox/Mg Hydrox/Simethicone (Mag-Al Plus) 30 ml Q6H PRN PO GASTROINTESTINAL UPSET; Start 01/06/19 at 05:30 Ondansetron HCl (Zofran Inj) 4 mg Q4H PRN IV NAUSEA AND/OR VOMITING; Start 01/06/19 at 13:00 Piperacillin Sod/ Tazobactam Sod 100 ml @ 200 mls/hr Q8 IVPB Last administered on 01/08/19at 14:05; Admin Dose 200 MLS/HR; Start 01/06/19 at 14:00 Influenza Virus Vaccine Quadrival (Fluzone) 0.5 ml ONCE ONCE IM* ; Start at 10:30; Stop 01/09/19 at 10:31 Meds reviewed: Yes Allergies Coded Allergies: No Known Drug Allergy (Verified Allergy, Unknown, 12/18/18) Allergies Reviewed: Yes Labs/Studies Labs Reviewed: Reviewed by anesthesiologist Result Diagram: 01/08/1944001/08/19440 Laboratory Tests 01/08/19 04:41 test: N/A Studies: ECG (SR), CXR (Atherosclerotic calcifications in the thoracic aorta) Pre-procedure Exam Last vitals Vital Signs Date Temp Pulse Resp B/P (MAP) Pulse Ox O2 O2 Flow FiO2 Time Delivery Rate 01/08/19 98.6 76 18 140/83 98 14:19 (102) 01/08/19 Room Air 07:51 Airway: Adequate mouth opening Mallampati: Mallampati II Teeth: Normal Lung: Normal Heart: Normal ASA Physical Status ASA physical status: 2 Emergency: None Planned Anesthetic General/MAC: ETT Pre-operative Attestations Prior to commencing anesthesia and surgery, the patient was re-evaluated, there was verification of: *The patient's identity *The results of appropriate recent lab work and preoperative vital signs *The above evaluation not changing prior to induction *Anesthetic plan, risk benefits, alternative and complications discussed with patient/family; questions answered; patient/family understands, accepts and wishes to proceed. SHARI SADLER Jan 08, 2019 15:06
--- NOTE | 2019-01-08 15:38 | PN ---
Date/Time of Note Date/Time of Note DATE: 01/08/19 TIME: 15:36 Assessment/Plan VTE Prophylaxis Risk score (from Nsg)>0 risk: 3 SCD applied (from Nsg): Yes Pharmacological prophylaxis: other Lines/Catheters IV Catheter Type (from Nrs): Peripheral IV Assessment/Plan Assessment/Plan symptomatic gallstones still perform lap kori possible open tomorrow NPO after midnight Result Diagram: 01/08/19 0441 01/08/19 0441 Results 24hrs Laboratory Tests Test 01/08/19 04:41 White Blood Count 5.2 Red Blood Count 4.56 L Hemoglobin 12.8 L Hematocrit 37.6 L Mean Corpuscular Volume 82.5 Mean Corpuscular Hemoglobin 28.1 L Mean Corpuscular Hemoglobin Concent 34.0 Red Cell Distribution Width 12.5 Platelet Count 277 Mean Platelet Volume 11.6 H Immature Granulocytes % 0.000 L Neutrophils % 45.9 Lymphocytes % 32.0 Monocytes % 9.6 Eosinophils % 11.7 H Basophils % 0.8 Nucleated Red Blood Cells % 0.0 Immature Granulocytes # 0.000 Neutrophils # 2.4 Lymphocytes # 1.7 Monocytes # 0.5 Eosinophils # 0.6 H Basophils # 0.0 Nucleated Red Blood Cells # 0.0 Sodium Level 140 Potassium Level 4.0 Chloride Level 105 Carbon Dioxide Level 25 Anion Gap 10 Blood Urea Nitrogen 15 Creatinine 0.94 Est Glomerular Filtrat Rate mL/min > 60 Glucose Level 124 Calcium Level 9.4 Phosphorus Level 4.1 Magnesium Level 2.1 Total Bilirubin 0.2 Direct Bilirubin 0.00 Indirect Bilirubin 0.2 Aspartate Amino Transf (AST/SGOT) 126 #H Alanine Aminotransferase (ALT/SGPT) 329 H Alkaline Phosphatase 122 H Total Protein 7.0 Albumin 3.8 Globulin 3.20 Albumin/Globulin Ratio 1.18 Subjective 24 Hr Interval Summary Free Text/Dictation repeated U/S and patient reassured that gallstones still exists even though this was already shown on MRCP. patient accepted the results of the u/s and agrees for lap kori. Exam/Review of Systems Exam Vitals Vital Signs Date Temp Pulse Resp B/P (MAP) Pulse Ox O2 O2 Flow FiO2 Time Delivery Rate 01/08/19 98.6 76 18 140/83 98 14:19 (102) 01/08/19 Room Air 07:51 Intake and Output 01/07/19 01/07/19 01/08/19 1515:00 23:00 07:00 IntakeIntake Total 970 ml 860 ml OutputOutput Total 500 ml BalanceBalance 470 ml 860 ml Exam ruq pain improved Results Results 24hrs Laboratory Tests Test 01/08/19 04:41 White Blood Count 5.2 Red Blood Count 4.56 L Hemoglobin 12.8 L Hematocrit 37.6 L Mean Corpuscular Volume 82.5 Mean Corpuscular Hemoglobin 28.1 L Mean Corpuscular Hemoglobin Concent 34.0 Red Cell Distribution Width 12.5 Platelet Count 277 Mean Platelet Volume 11.6 H Immature Granulocytes % 0.000 L Neutrophils % 45.9 Lymphocytes % 32.0 Monocytes % 9.6 Eosinophils % 11.7 H Basophils % 0.8 Nucleated Red Blood Cells % 0.0 Immature Granulocytes # 0.000 Neutrophils # 2.4 Lymphocytes # 1.7 Monocytes # 0.5 Eosinophils # 0.6 H Basophils # 0.0 Nucleated Red Blood Cells # 0.0 Sodium Level 140 Potassium Level 4.0 Chloride Level 105 Carbon Dioxide Level 25 Anion Gap 10 Blood Urea Nitrogen 15 Creatinine 0.94 Est Glomerular Filtrat Rate mL/min > 60 Glucose Level 124 Calcium Level 9.4 Phosphorus Level 4.1 Magnesium Level 2.1 Total Bilirubin 0.2 Direct Bilirubin 0.00 Indirect Bilirubin 0.2 Aspartate Amino Transf (AST/SGOT) 126 #H Alanine Aminotransferase (ALT/SGPT) 329 H Alkaline Phosphatase 122 H Total Protein 7.0 Albumin 3.8 Globulin 3.20 Albumin/Globulin Ratio 1.18 Medications Medication Current Medications Dextrose/Sodium Chloride 1,000 ml @ 75 mls/hr [id number] IV Last administered on 01/08/19at 10:15; Admin Dose 75 MLS/HR; Start 01/06/19 at 05:30 Pantoprazole (Protonix Iv) 40 mg DAILY@06 IV Last administered on 01/08/19at 06:33; Admin Dose 40 MG; Start 01/06/19 at 06:00 Acetaminophen (Tylenol Tab) 650 mg Q6H PRN PO MILD PAIN(1-3)OR ELEVATED TEMP; Start 01/06/19 at 05:30 Ondansetron HCl (Zofran Inj) 4 mg Q6H PRN IV NAUSEA AND/OR VOMITING; Start 01/06/19 at 05:30 Morphine Sulfate (morphine) 2 mg Q4H PRN IV SEVERE PAIN LEVEL 7-10; Start 01/06/19 at 05:30 Docusate Sodium (Colace) 100 mg BID PRN PO CONSTIPATION; Start 01/06/19 at 05:30 Al Hydrox/Mg Hydrox/Simethicone (Mag-Al Plus) 30 ml Q6H PRN PO GASTROINTESTINAL UPSET; Start 01/06/19 at 05:30 Ondansetron HCl (Zofran Inj) 4 mg Q4H PRN IV NAUSEA AND/OR VOMITING; Start 01/06/19 at 13:00 Piperacillin Sod/ Tazobactam Sod 100 ml @ 200 mls/hr Q8 IVPB Last administered on 01/08/19at 14:05; Admin Dose 200 MLS/HR; Start 01/06/19 at 14:00 Influenza Virus Vaccine Quadrival (Fluzone) 0.5 ml ONCE ONCE IM* ; Start 01/09/19 at 10:30; Stop 01/09/19 at 10:31 Mihir CAMARILLO Jan 08, 2019 15:38
--- NOTE | 2019-01-08 18:51 | CONS ---
Assessment/Plan Assessment/Plan Assessment/Plan (Daily) Assessment/Plan (Daily) IMPRESSION: 1. Biliary colic and gallstone. 2. Abnormal liver function tests most probably related to bile duct stone. Though the MRCP is negative, it can miss 20% of stone. 3. Hypertension. 4. Hyperlipidemia. 5. History of hemorrhoid. Plan I reviewed the MRCP report with Dr. Cobb. There was no stone. Bile duct is mildly dilated. Since the patient has absolute no abdominal pain no nausea no vomiting and all the LFTs are coming down it appears patient has passed a stone. Will cancel ERCP for the time being and monitor LFT. Resume diet Discussed with the patient and the patient's gallbladder needs to come out. Patient is a multiple gallstone and definitely passed stone through bile duct. Gallbladder needs to be removed in order to prevent future biliary pancreatitis Consultation Date/Type/Reason Admit Date/Time Jan 06, 2019 at 03:30 Initial Consult Date Date/Time of Note DATE: 01/08/19 TIME: 18:50 24 HR Interval Summary Constitutional: no complaints, improved Exam/Review of Systems Exam Vitals Vital Signs Date Temp Pulse Resp B/P (MAP) Pulse Ox O2 O2 Flow FiO2 Time Delivery Rate 01/08/19 98.6 76 18 140/83 98 14:19 (102) 01/08/19 Room Air 07:51 Intake and Output 01/07/19 01/07/19 01/08/19 1515:00 23:00 07:00 IntakeIntake Total 970 ml 860 ml OutputOutput Total 500 ml BalanceBalance 470 ml 860 ml Constitutional: alert, oriented, well developed Psych: no complaints, nl mood/affect Head: normocephalic, atraumatic Eyes: nl conjunctiva, EOMI, nl lids, nl sclera, PERRL ENMT: nl external ears & nose, nl lips & teeth, nl nasal mucosa & septum Neck: supple, non-tender Respiratory: clear to auscultation, normal air movement Cardiovascular: regular rate and rhythm, nl pulses Gastrointestinal: soft, nl liver, spleen, non-tender Musculoskeletal: nl extremities to inspection, nl gait and stance Extremities: normal pulses Neurological: SPAGHETTI PRESS HELPER II-XII intact, nl mental status, nl speech, nl strength Skin: nl turgor; No rash or lesions Lymph: nl lymph nodes Results Result Diagram: 01/08/1944001/08/19440 Results 24hrs Laboratory Tests Test 01/08/19 04:41 White Blood Count 5.2 Red Blood Count 4.56 L Hemoglobin 12.8 L Hematocrit 37.6 L Mean Corpuscular Volume 82.5 Mean Corpuscular Hemoglobin 28.1 L Mean Corpuscular Hemoglobin Concent 34.0 Red Cell Distribution Width 12.5 Platelet Count 277 Mean Platelet Volume 11.6 H Immature Granulocytes % 0.000 L Neutrophils % 45.9 Lymphocytes % 32.0 Monocytes % 9.6 Eosinophils % 11.7 H Basophils % 0.8 Nucleated Red Blood Cells % 0.0 Immature Granulocytes # 0.000 Neutrophils # 2.4 Lymphocytes # 1.7 Monocytes # 0.5 Eosinophils # 0.6 H Basophils # 0.0 Nucleated Red Blood Cells # 0.0 Sodium Level 140 Potassium Level 4.0 Chloride Level 105 Carbon Dioxide Level 25 Anion Gap 10 Blood Urea Nitrogen 15 Creatinine 0.94 Est Glomerular Filtrat Rate mL/min > 60 Glucose Level 124 Calcium Level 9.4 Phosphorus Level 4.1 Magnesium Level 2.1 Total Bilirubin 0.2 Direct Bilirubin 0.00 Indirect Bilirubin 0.2 Aspartate Amino Transf (AST/SGOT) 126 #H Alanine Aminotransferase (ALT/SGPT) 329 H Alkaline Phosphatase 122 H Total Protein 7.0 Albumin 3.8 Globulin 3.20 Albumin/Globulin Ratio 1.18 Medications Medication Current Medications Dextrose/Sodium Chloride 1,000 ml @ 75 mls/hr [id number] IV Last administered on 01/08/19at 10:15; Admin Dose 75 MLS/HR; Start 01/06/19 at 05:30 Acetaminophen (Tylenol Tab) 650 mg Q6H PRN PO MILD PAIN(1-3)OR ELEVATED TEMP; Start 01/06/19 at 05:30 Ondansetron HCl (Zofran Inj) 4 mg Q6H PRN IV NAUSEA AND/OR VOMITING; Start 01/06/19 at 05:30 Morphine Sulfate (morphine) 2 mg Q4H PRN IV SEVERE PAIN LEVEL 7-10; Start 01/06/19 at 05:30 Docusate Sodium (Colace) 100 mg BID PRN PO CONSTIPATION; Start 01/06/19 at 05:30 Al Hydrox/Mg Hydrox/Simethicone (Mag-Al Plus) 30 ml Q6H PRN PO GASTROINTESTINAL UPSET; Start 01/06/19 at 05:30 Ondansetron HCl (Zofran Inj) 4 mg Q4H PRN IV NAUSEA AND/OR VOMITING; Start 01/06/19 at 13:00 Piperacillin Sod/ Tazobactam Sod 100 ml @ 200 mls/hr Q8 IVPB Last administered on 01/08/19at 14:05; Admin Dose 200 MLS/HR; Start 01/06/19 at 14:00 Influenza Virus Vaccine Quadrival (Fluzone) 0.5 ml ONCE ONCE IM* ; Start 01/09/19 at 10:30; Stop 01/09/19 at 10:31 Famotidine (Pepcid Iv) 20 mg BID IV ; Start 01/09/19 at 21:00 STALIN SAGASTUME MD Jan 08, 2019 18:51
[2019-01-08 19:20] VITALS: BP 143/85; PULSE 68; RESP 20
[2019-01-09] VITALS (24 sets, daily range): BP systolic 108–150; BP diastolic 59–93; PULSE 62–114; RESP 14–24
[2019-01-09] MEDS: DEXTROSE 5%-0.45% NACL 1,000 ML IV SCH (03:06)
[2019-01-09] MEDS: PIPER-TAZO 3.375 GM IV (PMX) 100 ML IVPB SCH ×3 (06:26→21:21)
[2019-01-09] MEDS ORDERED: ROCURONIUM 50 MG INJ ONE (13:19)
[2019-01-09] MEDS ORDERED: PROPOFOL 20 ML ONE (13:19)
[2019-01-09] MEDS ORDERED: DESFLURANE 15 MIN ONE (13:19)
[2019-01-09] MEDS ORDERED: LIDOCAINE 2% (SDV) 5 ML INJ ONE (13:19)
[2019-01-09] MEDS ORDERED: SUCCINYLCHOLINE CHLORIDE 100 MG/5 ML SYG IV ONE (13:19)
[2019-01-09] MEDS ORDERED: MIDAZOLAM 1 MG/ML 2 ML INJ ONE (13:19)
[2019-01-09] MEDS ORDERED: ROPIVACAINE 0.5 % 30 ML VIAL ONE (13:21)
[2019-01-09] MEDS ORDERED: CEFAZOLIN 1 GM INJ ONE (14:06)
[2019-01-09] MEDS ORDERED: ONDANSETRON 4 MG INJ ONE (14:31)
[2019-01-09] MEDS ORDERED: hydrALAzine 20 MG INJ ONE (14:38)
[2019-01-09] MEDS ORDERED: BUPIVACAINE 0.25% (MPF) 30 ML INJ ONE (14:47)
--- NOTE | 2019-01-09 14:57 | OPR ---
Date/Time of Note Date/Time of Note DATE: 01/09/19 TIME: 14:54 Operative Report Procedure Date: Jan 09, 2019 Preoperative Diagnosis symptomatic gallstones Postoperative Diagnosis same Operation/Procedure Performed laparoscopic cholecystectomy Surgeon see signature line Cylinder Honer Earle Azevedo Anesthesia Type: general Estimated Blood Loss: 0 - 10 ml's Transfusion none Specimen gallbladder Grafts/Implants none Complications none Pt Condition Post Procedure: stable Indications This is a 63-year-old male who has right upper quadrant and evidence of gallstones that was symptomatic. He had elevated LFTs and alkaline phosphatase was elevated. He had an MRCP showed that there was no evidence of any further choledocholithiasis. He is brought to the OR for a laparoscopic ostectomy. Risks alternatives benefits and percent were discussed the patient. Patient expressed understanding consents to the operation. Procedure Description Patient is taken to the OR and prepped and draped in usual sterile fashion. Surgical time was performed. IV antibiotics were given. Infraumbilical incision was made transversely with a 15 blade. Dissection was cautery carried onto the fascia. The fascia was grasped with [place]'s and divided with curved Bledsoe scissors. 0 Vicryl U stitches placed into the fascia. Andrews trocar was introduced. Pneumoperitoneum was established. Midepigastric 12 mm optical trocar placed under direct visualization. Right upper quadrant upper flank 5 mm optical trochars were placed under direct visualization. Upon initial inspection there are some adhesions to the gallbladder which are taken down bluntly. The gallbladder was distended and intrahepatic. The gallbladder is grasped with the fundus and retracted in a lateral cephalad direction. [place] graspers used to identify and isolate out the cystic duct and cystic artery. The critical view was established. The cystic duct is divided with 3 clips proximally clipped distal and the division was performed laparoscopic scissors. Cystic artery was divided with 3 clips proximally clipped distal division was performed laparoscopic scissors. The gallbladder is taken of the gallbladder bed. Good hemostasis established. The gallbladder is retrieved using Endo Catch bag. Ports removed under direct visualization. 0 Vicryl stitch was tied down. Skin is closed and skin karine. A tap block was provided by the anesthesiologist. Additionally obtained therapeutic anesthesia was injected at the incision sites. Dry dressings were applied. Mihir CAMARILLO Jan 09, 2019 14:57
[2019-01-09] MEDS ORDERED: morphine 2 MG INJ IV PRN (15:00)
--- NOTE | 2019-01-09 15:09 | CONS ---
Assessment/Plan Assessment/Plan Assessment/Plan (Daily) Assessment/Plan Assessment/Plan (Daily) Assessment/Plan (Daily) IMPRESSION: 1. Biliary colic and gallstone. 2. Abnormal liver function tests most probably related to bile duct stone. Though the MRCP is negative, it can miss 20% of stone. 3. Hypertension. 4. Hyperlipidemia. 5. History of hemorrhoid. 6. Status post lap kori Plan I reviewed the MRCP report with Dr. Cobb. There was no stone. Bile duct is mildly dilated. Since the patient has absolute no abdominal pain no nausea no vomiting and all the LFTs are coming down it appears patient has passed a stone. Will cancel ERCP for the time being and monitor LFT. Resume diet Discussed with the patient and the patient's gallbladder needs to come out. Patient is a multiple gallstone and definitely passed stone through bile duct. Gallbladder needs to be removed in order to prevent future biliary pancreatitis Continue postoperative care and monitor LFT Consultation Date/Type/Reason Admit Date/Time Jan 06, 2019 at 03:30 Initial Consult Date Date/Time of Note DATE: 01/09/19 TIME: 15:07 24 HR Interval Summary Free Text/Dictation Postoperative pain Exam/Review of Systems Exam Vitals Vital Signs Date Temp Pulse Resp B/P (MAP) Pulse Ox O2 O2 Flow FiO2 Time Delivery Rate 01/09/19 98.0 15:05 01/09/19 63 20 140/81 99 Room Air 08:23 (100) Intake and Output 01/08/19 01/08/19 01/09/19 1414:59 22:59 06:59 IntakeIntake Total 1060 ml 825 ml 1462 ml OutputOutput Total 300 ml BalanceBalance 760 ml 825 ml 1462 ml Constitutional: oriented Psych: no complaints Head: normocephalic, atraumatic Eyes: nl conjunctiva, EOMI, nl lids, nl sclera, PERRL ENMT: nl lips & teeth Gastrointestinal: soft, nl liver, spleen, surgical scars Results Result Diagram: 01/08/19 0441 01/09/19 0437 Results 24hrs Laboratory Tests Test 01/09/19 04:37 Sodium Level 142 Potassium Level 4.1 Chloride Level 104 Carbon Dioxide Level 26 Anion Gap 12 Blood Urea Nitrogen 15 Creatinine 0.92 Est Glomerular Filtrat Rate mL/min > 60 Glucose Level 106 Calcium Level 9.4 Total Bilirubin 0.1 L Direct Bilirubin 0.00 Indirect Bilirubin 0.1 Aspartate Amino Transf (AST/SGOT) 67 H Alanine Aminotransferase (ALT/SGPT) 217 H Alkaline Phosphatase 102 Total Protein 7.3 Albumin 3.9 Globulin 3.40 H Albumin/Globulin Ratio 1.14 Medications Medication Current Medications Acetaminophen (Tylenol Tab) 650 mg Q6H PRN PO MILD PAIN(1-3)OR ELEVATED TEMP; Start 01/06/19 at 05:30 Ondansetron HCl (Zofran Inj) 4 mg Q6H PRN IV NAUSEA AND/OR VOMITING; Start 01/06/19 at 05:30 Morphine Sulfate (morphine) 2 mg Q4H PRN IV SEVERE PAIN LEVEL 7-10; Start 01/06/19 at 05:30 Docusate Sodium (Colace) 100 mg BID PRN PO CONSTIPATION; Start 01/06/19 at 05:30 Al Hydrox/Mg Hydrox/Simethicone (Mag-Al Plus) 30 ml Q6H PRN PO GASTROINTESTINAL UPSET; Start 01/06/19 at 05:30 Ondansetron HCl (Zofran Inj) 4 mg Q4H PRN IV NAUSEA AND/OR VOMITING; Start 01/06/19 at 13:00 Piperacillin Sod/ Tazobactam Sod 100 ml @ 200 mls/hr Q8 IVPB Last administered on 01/09/19at 06:26; Admin Dose 200 MLS/HR; Start 01/06/19 at 14:00 Famotidine (Pepcid Iv) 20 mg BID IV ; Start 01/09/19 at 21:00 Cefazolin Sodium/ Dextrose 50 ml @ 100 mls/hr Q8H IVPB ; Start 01/09/19 at 15:00; Stop 01/10/19 at 14:59; Status UNV Morphine Sulfate (morphine) 2 mg Q2H PRN IV PAIN LEVEL 6-10; Start 01/09/19 at 15:00; Status UNV Acetaminophen/ Hydrocodone Bitart ([place] (5/325)) 1 tab Q6H PRN PO PAIN LEVEL 6-10; Start 01/09/19 at 15:00; Status UNV Sodium Chloride 1,000 ml @ 100 mls/hr Q10H IV ; Start 01/09/19 at 14:50 STALIN SAGASTUME MD Jan 09, 2019 15:09
--- NOTE | 2019-01-09 15:15 | PAC ---
Date/Time of Note Date/Time of Note DATE: 01/09/19 TIME: 15:14 Post-Anesthesia Notes Post-Anesthesia Note Last documented vital signs Vital Signs Date Temp Pulse Resp B/P (MAP) Pulse Ox O2 O2 Flow FiO2 Time Delivery Rate 01/09/19 98.0 95 20 115/65 100 15:05 01/09/19 63 20 140/81 99 Room Air 08:23 (100) Activity: WNL Respiratory function: WNL Cardiovascular function: WNL Mental status: Baseline Pain reasonably controlled: Yes Hydration appropriate: Yes Nausea/Vomiting absent: Yes SHAHIDA MORFIN DO Jan 09, 2019 15:15
[2019-01-09] MEDS ORDERED: HYDROmorphONE 1 MG/5 ML IV SYRINGE IV ONE (15:37)
[2019-01-09] MEDS ORDERED: hydrALAzine 20 MG INJ IV PRN (16:00)
[2019-01-09] MEDS ORDERED: LABETALOL HCL 20MG INJ IV PRN (16:00)
[2019-01-09] MEDS ORDERED: HYDROmorphONE 1 MG/5 ML IV SYRINGE IV PRN ×2 (16:00)
[2019-01-09] MEDS ORDERED: ONDANSETRON 4 MG INJ IV PRN (16:00)
[2019-01-09] MEDS: CEFAZOLIN 2 GM/50 ML (PMX) 50 ML IVPB SCH (17:00)
[2019-01-09] MEDS: SOD CHLORIDE 0.9% 1,000 ML IV SCH (17:25)
--- NOTE | 2019-01-09 17:42 | PN ---
Date/Time of Note Date/Time of Note DATE: 01/09/19 TIME: 17:41 Assessment/Plan VTE Prophylaxis Risk score (from Ns)>0 risk: 4 SCD applied (from Ns): Yes Pharmacological prophylaxis: NA/contraindicated Pharm contraindication: low risk/ambulating Lines/Catheters [facility]from [facility] Peripheral IV Assessment/Plan Hospital Course 63-year-old male who presented with: 1. Right upper quadrant pain, nausea, vomiting with evidence of gallbladder wall edema on the CAT scan and ultrasound shows common bile duct dilatation, 6 mm stone in the gallbladder neck. MRCP neg patient has symptomatic gallstones 2. Abnormal LFTs and alkaline phosphatase secondary to #1, likely secondary to choledocholithiasis. 3. Leukocytosis secondary to #1. 4. History of hypertension. 5. Hyperlipidemia. 6. History of annuloplasty with ulcer. Plan -pod # 0 lap kori - Pain control -IV fluids, iv zosyn -Follow with GI and surgery Dr. Gates recommendations -Wound care consult also for ulcer, Dr Gonsalves following Result Diagram: 01/09/19 1521 01/09/19 1521 Results 24hrs Laboratory Tests Test 01/09/19 04:37 01/09/19 15:21 Sodium Level 142 140 Potassium Level 4.1 3.5 Chloride Level 104 106 Carbon Dioxide Level 26 24 Anion Gap 12 10 Blood Urea Nitrogen 15 9 Creatinine 0.92 0.68 Est Glomerular Filtrat Rate mL/min > 60 > 60 Glucose Level 106 125 Calcium Level 9.4 9.3 Total Bilirubin 0.1 L 0.1 L Direct Bilirubin 0.00 0.00 Indirect Bilirubin 0.1 0.1 Aspartate Amino Transf (AST/SGOT) 67 H 71 H Alanine Aminotransferase (ALT/SGPT) 217 H 211 H Alkaline Phosphatase 102 120 Total Protein 7.3 7.2 Albumin 3.9 4.0 Globulin 3.40 H 3.20 Albumin/Globulin Ratio 1.14 1.25 White Blood Count 6.3 # Red Blood Count 4.78 Hemoglobin 13.3 L Hematocrit 39.4 L Mean Corpuscular Volume 82.4 Mean Corpuscular Hemoglobin 27.8 L Mean Corpuscular Hemoglobin Concent 33.8 Red Cell Distribution Width 12.3 Platelet Count 269 Mean Platelet Volume 10.9 H Immature Granulocytes % 0.500 H Neutrophils % 49.3 Lymphocytes % 35.8 Monocytes % 6.0 Eosinophils % 7.9 H Basophils % 0.5 Nucleated Red Blood Cells % 0.0 Immature Granulocytes # 0.030 Neutrophils # 3.1 Lymphocytes # 2.3 Monocytes # 0.4 Eosinophils # 0.5 Basophils # 0.0 Nucleated Red Blood Cells # 0.0 Subjective 24 Hr Interval Summary Free Text/Dictation seen in Recivery room, POD#0 s/p lap kori Exam/Review of Systems Exam Vitals Vital Signs Date Temp Pulse Resp B/P (MAP) Pulse Ox O2 O2 Flow FiO2 Time Delivery Rate 01/09/19 98 15 128/84 98 Room Air 16:31 (99) 01/09/19 98.0 15:06 Intake and Output 01/08/19 01/08/19 01/09/19 1515:00 23:00 07:00 IntakeIntake Total 1060 ml 825 ml 1462 ml OutputOutput Total 300 ml BalanceBalance 760 ml 825 ml 1462 ml Exam TTP ruq Results Results 24hrs Laboratory Tests Test 01/09/19 04:37 01/09/19 15:21 Sodium Level 142 140 Potassium Level 4.1 3.5 Chloride Level 104 106 Carbon Dioxide Level 26 24 Anion Gap 12 10 Blood Urea Nitrogen 15 9 Creatinine 0.92 0.68 Est Glomerular Filtrat Rate mL/min > 60 > 60 Glucose Level 106 125 Calcium Level 9.4 9.3 Total Bilirubin 0.1 L 0.1 L Direct Bilirubin 0.00 0.00 Indirect Bilirubin 0.1 0.1 Aspartate Amino Transf (AST/SGOT) 67 H 71 H Alanine Aminotransferase (ALT/SGPT) 217 H 211 H Alkaline Phosphatase 102 120 Total Protein 7.3 7.2 Albumin 3.9 4.0 Globulin 3.40 H 3.20 Albumin/Globulin Ratio 1.14 1.25 White Blood Count 6.3 # Red Blood Count 4.78 Hemoglobin 13.3 L Hematocrit 39.4 L Mean Corpuscular Volume 82.4 Mean Corpuscular Hemoglobin 27.8 L Mean Corpuscular Hemoglobin Concent 33.8 Red Cell Distribution Width 12.3 Platelet Count 269 Mean Platelet Volume 10.9 H Immature Granulocytes % 0.500 H Neutrophils % 49.3 Lymphocytes % 35.8 Monocytes % 6.0 Eosinophils % 7.9 H Basophils % 0.5 Nucleated Red Blood Cells % 0.0 Immature Granulocytes # 0.030 Neutrophils # 3.1 Lymphocytes # 2.3 Monocytes # 0.4 Eosinophils # 0.5 Basophils # 0.0 Nucleated Red Blood Cells # 0.0 Medications Medication Current Medications Acetaminophen (Tylenol Tab) 650 mg Q6H PRN PO MILD PAIN(1-3)OR ELEVATED TEMP; Start 01/06/19 at 05:30 Ondansetron HCl (Zofran Inj) 4 mg Q6H PRN IV NAUSEA AND/OR VOMITING; Start 01/06/19 at 05:30 Docusate Sodium (Colace) 100 mg BID PRN PO CONSTIPATION; Start 01/06/19 at 05:30 Al Hydrox/Mg Hydrox/Simethicone (Mag-Al Plus) 30 ml Q6H PRN PO GASTROINTESTINAL UPSET; Start 01/06/19 at 05:30 Ondansetron HCl (Zofran Inj) 4 mg Q4H PRN IV NAUSEA AND/OR VOMITING; Start 01/06/19 at 13:00 Piperacillin Sod/ Tazobactam Sod 100 ml @ 200 mls/hr Q8 IVPB Last administered on 01/09/19at 06:26; Admin Dose 200 MLS/HR; Start 01/06/19 at 14:00 Famotidine (Pepcid Iv) 20 mg BID IV ; Start 01/09/19 at 21:00 Cefazolin Sodium/ Dextrose 50 ml @ 100 mls/hr Q8H IVPB ; Start 01/09/19 at 17:00; Stop 01/10/19 at 16:59 Morphine Sulfate (morphine) 2 mg Q2H PRN IV PAIN LEVEL 6-10; Start 01/09/19 at 15:00 Acetaminophen/ Hydrocodone Bitart ([place] (5/325)) 1 tab Q6H PRN PO PAIN LEVEL 6-10; Start 01/09/19 at 15:00 Sodium Chloride 1,000 ml @ 100 mls/hr Q10H IV Last administered on 01/09/19at 17:25; Admin Dose 100 MLS/HR; Start 01/09/19 at 14:50 Hydromorphone HCl (Dilaudid) 0.2 mg PACU PRN IV MILD PAIN 1-3; Start 01/09/19 at 16:00; Stop 01/09/19 at 20:00 Hydromorphone HCl (Dilaudid) 0.4 mg PACU PRN IV MOD PAIN 4-6 Last administered on 01/09/19at 15:53; Admin Dose 0.4 MG; Start 01/09/19 at 16:00; Stop 01/09/19 at 20:00 Ondansetron HCl (Zofran Inj) 4 mg PACU ORDER PRN IV NAUSEA/VOMITING; Start 01/09/19 at 16:00; Stop 01/09/19 at 20:00 Labetalol HCl (Labetalol) 5 mg PACU ORDER PRN IV HIGH BLOOD PRESSURE; Start 01/09/19 at 16:00; Stop 01/09/19 at 20:00 Hydralazine HCl (Apresoline) 5 mg PACU ORDER PRN IV HIGH BLOOD PRESSURE; Start 01/09/19 at 16:00; Stop 01/09/19 at 20:00 JEANCARLOS MONTOYA MD Jan 09, 2019 17:42
[2019-01-09] MEDS: FAMOTIDINE 20 MG INJ IV SCH (21:21)
[2019-01-09] MEDS: HYDROCODONE/APAP (5/325) TAB PO PRN (21:26)
[2019-01-10] VITALS: BP 113/61; PULSE 70; RESP 20
[2019-01-10] MEDS: SOD CHLORIDE 0.9% 1,000 ML IV SCH ×2 (00:50→10:50)
[2019-01-10] MEDS: CEFAZOLIN 2 GM/50 ML (PMX) 50 ML IVPB SCH ×2 (01:51→08:35)
[2019-01-10] MEDS: PIPER-TAZO 3.375 GM IV (PMX) 100 ML IVPB SCH ×3 (05:34→22:03)
[2019-01-10 08:11] VITALS: BP 103/58; PULSE 76; RESP 18
[2019-01-10] MEDS: FAMOTIDINE 20 MG INJ IV SCH (08:35)
[2019-01-10] MEDS: HYDROCODONE/APAP (5/325) TAB PO PRN (11:40)
--- NOTE | 2019-01-10 13:17 | CONS ---
Assessment/Plan Assessment/Plan Assessment/Plan (Daily) Assessment/Plan (Daily) Assessment/Plan (Daily) IMPRESSION: 1. Biliary colic and gallstone. 2. Abnormal liver function tests most probably related to bile duct stone. Though the MRCP is negative, it can miss 20% of stone. 3. Hypertension. 4. Hyperlipidemia. 5. History of hemorrhoid. 6. Status post lap kori, wound looks clean Plan I reviewed the MRCP report with Dr. Cobb. There was no stone. Bile duct is mildly dilated. Since the patient has absolute no abdominal pain no nausea no vomiting and all the LFTs are coming down it appears patient has passed a stone. Will cancel ERCP for the time being and monitor LFT. Resume diet Continue postoperative care and monitor LFT, it is trending downward Consultation Date/Type/Reason Admit Date/Time Jan 06, 2019 at 03:30 Initial Consult Date Date/Time of Note DATE: 01/10/19 TIME: 13:15 24 HR Interval Summary Free Text/Dictation Patient complains of postoperative pain Exam/Review of Systems Exam Vitals Vital Signs Date Temp Pulse Resp B/P (MAP) Pulse Ox O2 O2 Flow FiO2 Time Delivery Rate 01/10/19 99.3 76 18 103/58 96 08:11 (73) 01/10/19 Room Air 00:00 Intake and Output 01/09/19 01/09/19 01/10/19 1515:00 23:00 07:00 IntakeIntake Total 850 ml 1340 ml 1450 ml OutputOutput Total 10 ml 800 ml BalanceBalance 850 ml 1330 ml 650 ml Constitutional: alert, oriented, well developed Psych: no complaints, nl mood/affect Head: normocephalic, atraumatic Eyes: nl conjunctiva, EOMI, nl lids, nl sclera, PERRL ENMT: nl external ears & nose, nl lips & teeth, nl nasal mucosa & septum Neck: supple, non-tender Respiratory: clear to auscultation, normal air movement Cardiovascular: regular rate and rhythm, nl pulses Gastrointestinal: soft, nl liver, spleen, non-tender Musculoskeletal: nl extremities to inspection, nl gait and stance Extremities: normal pulses Neurological: LAB INTERN II-XII intact, nl mental status, nl speech, nl strength Skin: nl turgor; No rash or lesions Lymph: nl lymph nodes Results Result Diagram: 01/10/19 0447 01/10/197 Results 24hrs Laboratory Tests Test 01/09/19 15:21 01/10/19 04:47 White Blood Count 6.3 # 7.7 # Red Blood Count 4.78 4.47 L Hemoglobin 13.3 L 12.4 L Hematocrit 39.4 L 37.2 L Mean Corpuscular Volume 82.4 83.2 Mean Corpuscular Hemoglobin 27.8 L 27.7 L Mean Corpuscular Hemoglobin Concent 33.8 33.3 Red Cell Distribution Width 12.3 12.7 Platelet Count 269 260 Mean Platelet Volume 10.9 H 11.2 H Immature Granulocytes % 0.500 H 0.300 Neutrophils % 49.3 65.4 Lymphocytes % 35.8 20.3 Monocytes % 6.0 7.7 Eosinophils % 7.9 H 5.9 Basophils % 0.5 0.4 Nucleated Red Blood Cells % 0.0 0.0 Immature Granulocytes # 0.030 0.020 Neutrophils # 3.1 5.0 Lymphocytes # 2.3 1.6 Monocytes # 0.4 0.6 Eosinophils # 0.5 0.5 Basophils # 0.0 0.0 Nucleated Red Blood Cells # 0.0 0.0 Sodium Level 140 141 Potassium Level 3.5 4.1 Chloride Level 106 102 Carbon Dioxide Level 24 28 Anion Gap 10 11 Blood Urea Nitrogen 9 8 Creatinine 0.68 0.92 Est Glomerular Filtrat Rate mL/min > 60 > 60 Glucose Level 125 100 Calcium Level 9.3 9.4 Total Bilirubin 0.1 L 0.3 Direct Bilirubin 0.00 0.00 Indirect Bilirubin 0.1 0.3 Aspartate Amino Transf (AST/SGOT) 71 H 96 H Alanine Aminotransferase (ALT/SGPT) 211 H 175 H Alkaline Phosphatase 120 93 Total Protein 7.2 6.9 Albumin 4.0 3.7 Globulin 3.20 3.20 Albumin/Globulin Ratio 1.25 1.15 Medications Medication Current Medications Acetaminophen (Tylenol Tab) 650 mg Q6H PRN PO MILD PAIN(1-3)OR ELEVATED TEMP; Start 01/06/19 at 05:30 Ondansetron HCl (Zofran Inj) 4 mg Q6H PRN IV NAUSEA AND/OR VOMITING; Start 01/06/19 at 05:30 Docusate Sodium (Colace) 100 mg BID PRN PO CONSTIPATION; Start 01/06/19 at 05:30 Al Hydrox/Mg Hydrox/Simethicone (Mag-Al Plus) 30 ml Q6H PRN PO GASTROINTESTINAL UPSET; Start 01/06/19 at 05:30 Ondansetron HCl (Zofran Inj) 4 mg Q4H PRN IV NAUSEA AND/OR VOMITING; Start at 13:00 Piperacillin Sod/ Tazobactam Sod 100 ml @ 200 mls/hr Q8 IVPB Last administered on 01/10/19at 05:34; Admin Dose 200 MLS/HR; Start 01/06/19 at 14:00 Famotidine (Pepcid Iv) 20 mg BID IV Last administered on 01/10/19 08:35; Admin Dose 20 MG; Start 01/09/19 at 21:00 Cefazolin Sodium/ Dextrose 50 ml @ 100 mls/hr Q8H IVPB Last administered on 01/10/19at 08:35; Admin Dose 100 MLS/HR; Start 01/09/19 at 17:00; Stop 01/10/19 at 16:59 Morphine Sulfate (morphine) 2 mg Q2H PRN IV PAIN LEVEL 6-10; Start 01/09/19 at 15:00 Acetaminophen/ Hydrocodone Bitart ([place] (5/325)) 1 tab Q6H PRN PO PAIN LEVEL 6-10 Last administered on 01/10/19at 11:40; Admin Dose 1 TAB; Start 01/09/19 at 15:00 Sodium Chloride 1,000 ml @ 100 mls/hr Q10H IV Last administered on 01/09/19at 17:25; Admin Dose 100 MLS/HR; Start 01/09/19 at 14:50 STALIN SAGASTUME MD Jan 10, 2019 13:16
[2019-01-10 14:08] VITALS: BP 98/55; PULSE 83; RESP 18
--- NOTE | 2019-01-10 14:41 | PN ---
Date/Time of Note Date/Time of Note DATE: 01/10/19 TIME: 14:41 Assessment/Plan VTE Prophylaxis Risk score (from Ns)>0 risk: 2 SCD applied (from Ns): Yes Pharmacological prophylaxis: NA/contraindicated Pharm contraindication: surgical contra Lines/Catheters IV [facility] Type (from [facility]): Peripheral IV Urinary Cath still in place: No Assessment/Plan Hospital Course 1. Right upper quadrant pain, nausea, vomiting with evidence of gallbladder wall edema on the CAT scan and ultrasound shows common bile duct dilatation, 6 mm stone in the gallbladder neck. MRCP neg patient has symptomatic gallstones. S/p lap. kori 2. Abnormal LFTs and alkaline phosphatase secondary to #1, likely secondary to choledocholithiasis. 3. Leukocytosis secondary to #1. 4. History of hypertension. 5. Hyperlipidemia. 6. History of annuloplasty with ulcer. Assessment/Plan -pod # 1 lap kori - Pain control -tolerating diet well -stop IV fluids, -c/w iv zosyn -Follow with GI and surgery Dr. Gates recommendations -Wound care consult also for ulcer, Dr Gonsalves following Result Diagram: 01/10/1944601/10/19446 Results 24hrs Laboratory Tests Test 01/09/19 15:21 01/10/19 04:47 White Blood Count 6.3 # 7.7 # Red Blood Count 4.78 4.47 L Hemoglobin 13.3 L 12.4 L Hematocrit 39.4 L 37.2 L Mean Corpuscular Volume 82.4 83.2 Mean Corpuscular Hemoglobin 27.8 L 27.7 L Mean Corpuscular Hemoglobin Concent 33.8 33.3 Red Cell Distribution Width 12.3 12.7 Platelet Count 269 260 Mean Platelet Volume 10.9 H 11.2 H Immature Granulocytes % 0.500 H 0.300 Neutrophils % 49.3 65.4 Lymphocytes % 35.8 20.3 Monocytes % 6.0 7.7 Eosinophils % 7.9 H 5.9 Basophils % 0.5 0.4 Nucleated Red Blood Cells % 0.0 0.0 Immature Granulocytes # 0.030 0.020 Neutrophils # 3.1 5.0 Lymphocytes # 2.3 1.6 Monocytes # 0.4 0.6 Eosinophils # 0.5 0.5 Basophils # 0.0 0.0 Nucleated Red Blood Cells # 0.0 0.0 Sodium Level 140 141 Potassium Level 3.5 4.1 Chloride Level 106 102 Carbon Dioxide Level 24 28 Anion Gap 10 11 Blood Urea Nitrogen 9 8 Creatinine 0.68 0.92 Est Glomerular Filtrat Rate mL/min > 60 > 60 Glucose Level 125 100 Calcium Level 9.3 9.4 Total Bilirubin 0.1 L 0.3 Direct Bilirubin 0.00 0.00 Indirect Bilirubin 0.1 0.3 Aspartate Amino Transf (AST/SGOT) 71 H 96 H Alanine Aminotransferase (ALT/SGPT) 211 H 175 H Alkaline Phosphatase 120 93 Total Protein 7.2 6.9 Albumin 4.0 3.7 Globulin 3.20 3.20 Albumin/Globulin Ratio 1.25 1.15 Subjective 24 Hr Interval Summary Gastrointestinal: pain (decreased) Exam/Review of Systems Exam Vitals Vital Signs Date Temp Pulse Resp B/P (MAP) Pulse Ox O2 O2 Flow FiO2 Time Delivery Rate 01/10/19 98.2 83 18 98/55 (69) 94 14:08 01/10/19 Room Air 00:00 Intake and Output 01/09/19 01/09/19 01/10/19 1515:00 23:00 07:00 IntakeIntake Total 850 ml 1340 ml 1450 ml OutputOutput Total 10 ml 800 ml BalanceBalance 850 ml 1330 ml 650 ml Constitutional: alert, oriented Neck: supple Respiratory: clear to auscultation Cardiovascular: regular rate and rhythm Gastrointestinal: soft, surgical scars Musculoskeletal: other (rectal flap necrotic) Results Results 24hrs Laboratory Tests Test 01/09/19 15:21 01/10/19 04:47 White Blood Count 6.3 # 7.7 # Red Blood Count 4.78 4.47 L Hemoglobin 13.3 L 12.4 L Hematocrit 39.4 L 37.2 L Mean Corpuscular Volume 82.4 83.2 Mean Corpuscular Hemoglobin 27.8 L 27.7 L Mean Corpuscular Hemoglobin Concent 33.8 33.3 Red Cell Distribution Width 12.3 12.7 Platelet Count 269 260 Mean Platelet Volume 10.9 H 11.2 H Immature Granulocytes % 0.500 H 0.300 Neutrophils % 49.3 65.4 Lymphocytes % 35.8 20.3 Monocytes % 6.0 7.7 Eosinophils % 7.9 H 5.9 Basophils % 0.5 0.4 Nucleated Red Blood Cells % 0.0 0.0 Immature Granulocytes # 0.030 0.020 Neutrophils # 3.1 5.0 Lymphocytes # 2.3 1.6 Monocytes # 0.4 0.6 Eosinophils # 0.5 0.5 Basophils # 0.0 0.0 Nucleated Red Blood Cells # 0.0 0.0 Sodium Level 140 141 Potassium Level 3.5 4.1 Chloride Level 106 102 Carbon Dioxide Level 24 28 Anion Gap 10 11 Blood Urea Nitrogen 9 8 Creatinine 0.68 0.92 Est Glomerular Filtrat Rate mL/min > 60 > 60 Glucose Level 125 100 Calcium Level 9.3 9.4 Total Bilirubin 0.1 L 0.3 Direct Bilirubin 0.00 0.00 Indirect Bilirubin 0.1 0.3 Aspartate Amino Transf (AST/SGOT) 71 H 96 H Alanine Aminotransferase (ALT/SGPT) 211 H 175 H Alkaline Phosphatase 120 93 Total Protein 7.2 6.9 Albumin 4.0 3.7 Globulin 3.20 3.20 Albumin/Globulin Ratio 1.25 1.15 Medications Medication Current Medications Acetaminophen (Tylenol Tab) 650 mg Q6H PRN PO MILD PAIN(1-3)OR ELEVATED TEMP; Start 01/06/19 at 05:30 Ondansetron HCl (Zofran Inj) 4 mg Q6H PRN IV NAUSEA AND/OR VOMITING; Start 01/06/19 at 05:30 Docusate Sodium (Colace) 100 mg BID PRN PO CONSTIPATION; Start 01/06/19 at 05:30 Al Hydrox/Mg Hydrox/Simethicone (Mag-Al Plus) 30 ml Q6H PRN PO GASTROINTESTINAL UPSET; Start 01/06/19 at 05:30 Ondansetron HCl (Zofran Inj) 4 mg Q4H PRN IV NAUSEA AND/OR VOMITING; Start 01/06/19 at 13:00 Piperacillin Sod/ Tazobactam Sod 100 ml @ 200 mls/hr Q8 IVPB Last administered on 01/10/19at 14:35; Admin Dose 200 MLS/HR; Start 01/06/19 at 14:00 Famotidine (Pepcid Iv) 20 mg BID IV Last administered on 01/10/19at 08:35; Admin Dose 20 MG; Start 01/09/19 at 21:00 Cefazolin Sodium/ Dextrose 50 ml @ 100 mls/hr Q8H IVPB Last administered on 01/10/19at 08:35; Admin Dose 100 MLS/HR; Start 01/09/19 at 17:00; Stop 01/10/19 at 16:59 Morphine Sulfate (morphine) 2 mg Q2H PRN IV PAIN LEVEL 6-10; Start 01/09/19 at 15:00 Acetaminophen/ Hydrocodone Bitart ([place] (5/325)) 1 tab Q6H PRN PO PAIN LEVEL 6-10 Last administered on 01/10/19at 11:40; Admin Dose 1 TAB; Start 01/09/19 at 15:00 Sodium Chloride 1,000 ml @ 100 mls/hr Q10H IV Last administered on 01/09/19at 17:25; Admin Dose 100 MLS/HR; Start 01/09/19 at 14:50 TERRI CLEMENTE Jan 10, 2019 14:41
--- NOTE | 2019-01-10 16:39 | PN ---
DATE: 01/10/2019 Postop day #1 status post laparoscopic cholecystectomy. SUBJECTIVE: No specific complaint. Has tolerated food a little bit. Has not had bowel movement, wa s passing some gas. No nausea, no vomiting. Complains of too much pain. OBJECTIVE: GENERAL: Awake, alert, oriented x3. VITAL SIGNS: Temperature maximum 99.3, heart rate 83, respiration 18, blood pressure 103/58, saturat ion 96% on room air. HEART: Regular. LUNGS: Clear. ABDOMEN: Soft, some tenderness, especially in right upper quadrant, also at the site of the trocars. LABORATORY DATA: Today, WBC is 7700 with 65% segmented, hemoglobin 12.4, hematocrit 37.2. Chemistry : Sodium, potassium is normal. The AST and ALT and alkaline phosphatase, which were abnormal and el evated at the time of admission, are gradually trending down towards normal today. AST 93 is elevate d. ALT is 175%, elevated. Alkaline phosphatase is 93, which is normal. Also, on 12/18/2018, patien t had operation for recurrent anal stenosis with skin flap advancement and there was concern about th e wound in that area, but since Dr. Gonsalves did not ask me to evaluate that one and he asked me only to t josue care of the status post cholecystectomy, I leave this for Dr. Gonsalves to take care of it himself. Fr om gallbladder point of view operation, the patient is stable. We will repeat liver function tests and lab results tomorrow to make sure it is trending more toward normal. Dr. Aldridge's nurse practitio ner is following the patient as well. Dictated By: JOVANNI PISANO MD PS/NTS Conf#: [id number] DID#: [id number] CC: HIGINIO ALDRIDGE MD;*EndCC*
[2019-01-10] MEDS: FAMOTIDINE 20 MG TAB PO SCH (20:34)
[2019-01-10 20:40] VITALS: BP_SYST 142; BP_SYST 87; BP_DIAS 53; BP_DIAS 75; PULSE 70; RESP 18
[2019-01-11 01:14] VITALS: BP 140/70; PULSE 72; RESP 18
[2019-01-11] MEDS: PIPER-TAZO 3.375 GM IV (PMX) 100 ML IVPB SCH ×3 (05:34→21:18)
[2019-01-11 07:27] VITALS: BP 127/74; PULSE 78; RESP 18
[2019-01-11] MEDS: FAMOTIDINE 20 MG TAB PO SCH ×2 (08:21→21:17)
--- NOTE | 2019-01-11 12:19 | PN ---
Date/Time of Note Date/Time of Note DATE: 01/11/19 TIME: 12:13 Assessment/Plan VTE Prophylaxis Risk score (from Ns)>0 risk: 4 SCD applied (from Ns): Yes Pharmacological prophylaxis: NA/contraindicated Pharm contraindication: surgical contra Lines/Catheters IV Catheter Type (from [facility]): [place] Urinary Cath still in place: No Assessment/Plan Hospital Course 1. Right upper quadrant pain, nausea, vomiting with evidence of gallbladder wall edema on MRI and ultrasound shows common bile duct dilatation, 6 mm stone in the gallbladder neck. MRCP neg patient has symptomatic gallstones. S/p lap. kori 2. Abnormal LFTs and alkaline phosphatase secondary to #1, likely secondary to choledocholithiasis. 3. Leukocytosis secondary to #1, resolved 4. History of hypertension. 5. Hyperlipidemia. 6. History of annuloplasty with ulcer. 7. Microcytic normochromic anemia Assessment/Plan -pod # 2 lap kori - Pain control -tolerating diet well -c/w iv zosyn -Follow with GI and surgery Dr. Gonsalves recommendations -Wound care consult also for ulcer, Dr Gonsalves following -iron supplement Result Diagram: 01/11/19 0446 01/11/19 0446 Results 24hrs Laboratory Tests Test 01/11/19 04:46 White Blood Count 7.0 Red Blood Count 4.52 L Hemoglobin 12.6 L Hematocrit 37.4 L Mean Corpuscular Volume 82.7 Mean Corpuscular Hemoglobin 27.9 L Mean Corpuscular Hemoglobin Concent 33.7 Red Cell Distribution Width 12.4 Platelet Count 248 Mean Platelet Volume 11.5 H Immature Granulocytes % 0.300 Neutrophils % 51.6 Lymphocytes % 28.9 Monocytes % 8.5 Eosinophils % 10.0 H Basophils % 0.7 Nucleated Red Blood Cells % 0.0 Immature Granulocytes # 0.020 Neutrophils # 3.6 Lymphocytes # 2.0 Monocytes # 0.6 Eosinophils # 0.7 H Basophils # 0.1 Nucleated Red Blood Cells # 0.0 Sodium Level 140 Potassium Level 3.7 Chloride Level 105 Carbon Dioxide Level 26 Anion Gap 9 Blood Urea Nitrogen 9 Creatinine 0.85 Est Glomerular Filtrat Rate mL/min > 60 Glucose Level 105 Calcium Level 9.5 Subjective 24 Hr Interval Summary Constitutional: improved Gastrointestinal: pain Skin: skin lesions (back area) Exam/Review of Systems Exam Vitals Vital Signs Date Temp Pulse Resp B/P (MAP) Pulse Ox O2 O2 Flow FiO2 Time Delivery Rate 01/11/19 98.6 78 18 127/74 98 07:27 (91) 01/10/19 Room Air 00:00 Intake and Output 01/10/19 01/10/19 01/11/19 1515:00 23:00 07:00 IntakeIntake Total 450 ml 1080 ml 100 ml OutputOutput Total 2300 ml BalanceBalance 450 ml -1220 ml 100 ml Constitutional: alert, oriented Cardiovascular: regular rate and rhythm Gastrointestinal: soft, surgical scars Results Results 24hrs Laboratory Tests Test 01/11/19 04:46 White Blood Count 7.0 Red Blood Count 4.52 L Hemoglobin 12.6 L Hematocrit 37.4 L Mean Corpuscular Volume 82.7 Mean Corpuscular Hemoglobin 27.9 L Mean Corpuscular Hemoglobin Concent 33.7 Red Cell Distribution Width 12.4 Platelet Count 248 Mean Platelet Volume 11.5 H Immature Granulocytes % 0.300 Neutrophils % 51.6 Lymphocytes % 28.9 Monocytes % 8.5 Eosinophils % 10.0 H Basophils % 0.7 Nucleated Red Blood Cells % 0.0 Immature Granulocytes # 0.020 Neutrophils # 3.6 Lymphocytes # 2.0 Monocytes # 0.6 Eosinophils # 0.7 H Basophils # 0.1 Nucleated Red Blood Cells # 0.0 Sodium Level 140 Potassium Level 3.7 Chloride Level 105 Carbon Dioxide Level 26 Anion Gap 9 Blood Urea Nitrogen 9 Creatinine 0.85 Est Glomerular Filtrat Rate mL/min > 60 Glucose Level 105 Calcium Level 9.5 Medications Medication Current Medications Acetaminophen (Tylenol Tab) 650 mg Q6H PRN PO MILD PAIN(1-3)OR ELEVATED TEMP; Start 01/06/19 at 05:30 Ondansetron HCl (Zofran Inj) 4 mg Q6H PRN IV NAUSEA AND/OR VOMITING; Start 01/06/19 at 05:30 Docusate Sodium (Colace) 100 mg BID PRN PO CONSTIPATION Last administered on 01/11/19at 10:09; Admin Dose 100 MG; Start 01/06/19 at 05:30 Al Hydrox/Mg Hydrox/Simethicone (Mag-Al Plus) 30 ml Q6H PRN PO GASTROINTESTINAL UPSET; Start 01/06/19 at 05:30 Ondansetron HCl (Zofran Inj) 4 mg Q4H PRN IV NAUSEA AND/OR VOMITING; Start 01/06/19 at 13:00 Piperacillin Sod/ Tazobactam Sod 100 ml @ 200 mls/hr Q8 IVPB Last administered on 01/11/19at 05:34; Admin Dose 200 MLS/HR; Start 01/06/19 at 14:00 Morphine Sulfate (morphine) 2 mg Q2H PRN IV PAIN LEVEL 6-10; Start 01/09/19 at 15:00 Acetaminophen/ Hydrocodone Bitart ([place] (5/325)) 1 tab Q6H PRN PO PAIN LEVEL 6-10 Last administered on 01/10/19at 11:40; Admin Dose 1 TAB; Start 01/09/19 at 15:00 Famotidine (Pepcid) 20 mg BID PO Last administered on 01/11/19at 08:21; Admin Dose 20 MG; Start 01/10/19 at 21:00 TERRI CLEMENTE 24, 2019 12:19
[2019-01-11] MEDS: POLYSACCHARIDE IRON COMPLEX CAP PO SCH ×2 (13:51→21:17)
--- NOTE | 2019-01-11 14:18 | PN ---
DATE: 01/11/2019 SUBJECTIVE: I am seeing this patient for Dr. Camarillo, status post laparoscopic cholecystectomy. Actuall y, the patient was admitted through the emergency room on 01/06/2019 due to abdominal right upper kathie drant pain and diagnosis of acute cholecystitis and cholelithiasis was made. Consultation with Dr. Essence smith was obtained and the patient was taken to the operating room on 01/09/2019 and laparoscopi c cholecystectomy was performed. Now postop day #2, the patient is still complaining of pain in the right upper quadrant epigastric area. LABORATORY DATA: Today show sodium, potassium, BUN, creatinine normal. AST and ALT which was elevat ed gradually was coming down, but AST was elevated today a little bit more than before. ALT is 175, elevated. Bilirubin is normal. Amylase and lipase, we do not have it today, so we are going to repe at it for tomorrow as before it has been normal to make sure this stays normal and discontinuation of the pain is not due to postop pancreatitis. Continue to give antibiotic IV they started the patient on admission for the acute cholecystitis. PHYSICAL EXAMINATION: HEART: Regular. LUNGS: Clear. ABDOMEN: Mildly distended, some tenderness in right upper quadrant area. EXTREMITIES: Lower extremity is negative. Dictated By: JOVANNI PISANO MD PS/NTS Conf#: [id number] DID#: [id number] CC: HIGINIO ALDRIDGE MD; JASKARAN CAMARILLO MD;*End*
[2019-01-11 14:44] VITALS: BP 131/77; PULSE 79; RESP 18
--- NOTE | 2019-01-11 14:44 | CONS ---
Assessment/Plan Assessment/Plan Assessment/Plan (Daily) Assessment/Plan (Daily) Assessment/Plan (Daily) Assessment/Plan (Daily) IMPRESSION: 1. Biliary colic and gallstone. 2. Abnormal liver function tests most probably related to bile duct stone. Though the MRCP is negative, it can miss 20% of stone. 3. Hypertension. 4. Hyperlipidemia. 5. History of hemorrhoid. 6. Status post lap kori, wound looks clean Plan I reviewed the MRCP report with Dr. Cobb. There was no stone. Bile duct is mildly dilated. Since the patient has absolute no abdominal pain no nausea no vomiting and all the LFTs are coming down it appears patient has passed a stone. Will cancel ERCP for the time being and monitor LFT. Resume diet Continue postoperative care and monitor LFT, it is trending downward Tolerating diet and pain is well controlled and improved Consultation Date/Type/Reason Admit Date/Time Jan 06, 2019 at 03:30 Initial Consult Date Date/Time of Note DATE: 01/11/19 TIME: 14:43 24 HR Interval Summary Constitutional: improved Exam/Review of Systems Exam Vitals Vital Signs Date Temp Pulse Resp B/P (MAP) Pulse Ox O2 O2 Flow FiO2 Time Delivery Rate 01/11/19 98.6 78 18 127/74 98 07:27 (91) 01/10/19 Room Air 00:00 Intake and Output 01/10/19 01/10/19 01/11/19 1515:00 23:00 07:00 IntakeIntake Total 450 ml 1080 ml 100 ml OutputOutput Total 2300 ml BalanceBalance 450 ml -1220 ml 100 ml Constitutional: alert, oriented, well developed Psych: no complaints, nl mood/affect Head: normocephalic, atraumatic Eyes: nl conjunctiva, EOMI, nl lids, nl sclera, PERRL ENMT: nl external ears & nose, nl lips & teeth, nl nasal mucosa & septum Neck: supple, non-tender Respiratory: clear to auscultation, normal air movement Cardiovascular: regular rate and rhythm, nl pulses Gastrointestinal: soft, nl liver, spleen, non-tender Musculoskeletal: nl extremities to inspection, nl gait and stance Extremities: normal pulses 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, nl mental status, nl speech, nl strength Skin: nl turgor; No rash or lesions Lymph: nl lymph nodes Results Result Diagram: 01/11/19 0446 01/11/19 0446 Results 24hrs Laboratory Tests Test 01/11/19 04:46 White Blood Count 7.0 Red Blood Count 4.52 L Hemoglobin 12.6 L Hematocrit 37.4 L Mean Corpuscular Volume 82.7 Mean Corpuscular Hemoglobin 27.9 L Mean Corpuscular Hemoglobin Concent 33.7 Red Cell Distribution Width 12.4 Platelet Count 248 Mean Platelet Volume 11.5 H Immature Granulocytes % 0.300 Neutrophils % 51.6 Lymphocytes % 28.9 Monocytes % 8.5 Eosinophils % 10.0 H Basophils % 0.7 Nucleated Red Blood Cells % 0.0 Immature Granulocytes # 0.020 Neutrophils # 3.6 Lymphocytes # 2.0 Monocytes # 0.6 Eosinophils # 0.7 H Basophils # 0.1 Nucleated Red Blood Cells # 0.0 Sodium Level 140 Potassium Level 3.7 Chloride Level 105 Carbon Dioxide Level 26 Anion Gap 9 Blood Urea Nitrogen 9 Creatinine 0.85 Est Glomerular Filtrat Rate mL/min > 60 Glucose Level 105 Calcium Level 9.5 Medications Medication Current Medications Acetaminophen (Tylenol Tab) 650 mg Q6H PRN PO MILD PAIN(1-3)OR ELEVATED TEMP; Start 01/06/19 at 05:30 Ondansetron HCl (Zofran Inj) 4 mg Q6H PRN IV NAUSEA AND/OR VOMITING; Start 01/06/19 at 05:30 Docusate Sodium (Colace) 100 mg BID PRN PO CONSTIPATION Last administered on 01/11/19at 10:09; Admin Dose 100 MG; Start 01/06/19 at 05:30 Al Hydrox/Mg Hydrox/Simethicone (Mag-Al Plus) 30 ml Q6H PRN PO GASTROINTESTINAL UPSET; Start 01/06/19 at 05:30 Ondansetron HCl (Zofran Inj) 4 mg Q4H PRN IV NAUSEA AND/OR VOMITING; Start 01/06/19 at 13:00 Piperacillin Sod/ Tazobactam Sod 100 ml @ 200 mls/hr Q8 IVPB Last administered on 01/11/19at 13:51; Admin Dose 200 MLS/HR; Start 01/06/19 at 14:00 Morphine Sulfate (morphine) 2 mg Q2H PRN IV PAIN LEVEL 6-10; Start 01/09/19 at 15:00 Acetaminophen/ Hydrocodone Bitart ([place] (5/325)) 1 tab Q6H PRN PO PAIN LEVEL 6-10 Last administered on 01/10/19at 11:40; Admin Dose 1 TAB; Start 01/09/19 at 15:00 Famotidine (Pepcid) 20 mg BID PO Last administered on 01/11/19at 08:21; Admin Dose 20 MG; Start 01/10/19 at 21:00 Polysaccharide Iron Complex (Niferex-150) 1 cap BID PO Last administered on 01/11/19at 13:51; Admin Dose 1 CAP; Start 01/11/19 at 13:30 STALIN SAGASTUME MD Jan 11, 2019 14:44
[2019-01-11] MEDS ORDERED: BISACODYL (EC) 5 MG TAB PO PRN (15:30)
[2019-01-11 19:26] VITALS: BP 125/78; PULSE 74; RESP 16
[2019-01-12 00:41] VITALS: BP 140/87; PULSE 80; RESP 16
[2019-01-12] MEDS: PIPER-TAZO 3.375 GM IV (PMX) 100 ML IVPB SCH ×2 (06:47→13:41)
--- NOTE | 2019-01-12 07:44 | CONS ---
Assessment/Plan Assessment/Plan Hospital Course (Demo Recall) 63 yo male with abdominal pain Interval hx: No N/V. Tolerating regular diet. BM soft and yellow. Mild surgical pain when he moves. LFT wnl except alt which is trending down. 1. Biliary colic and gallstone. 2. Abnormal liver function tests most probably related to bile duct stone. -Pt passed stone -LFTs trending down to normal limits 3. Hypertension. 4. Hyperlipidemia. 5. History of hemorrhoid. 6. Status post lap kori, wound looks clean Plan Diet education provided. Continue PO diet Pain management Pt examined and plan of care discussed with Dr. Campa Consultation Date/Type/Reason Admit Date/Time Jan 06, 2019 at 03:30 Initial Consult Date Date/Time of Note DATE: 01/12/19 TIME: 07:44 Exam/Review of Systems Exam Vitals Vital Signs Date Temp Pulse Resp B/P (MAP) Pulse Ox O2 O2 Flow FiO2 Time Delivery Rate 01/12/19 98.6 80 16 140/87 96 Room Air 00:41 (104) Intake and Output 01/11/19 01/11/19 01/12/19 1515:00 23:00 07:00 IntakeIntake Total 460 ml 300 ml OutputOutput Total 800 ml 400 ml BalanceBalance -340 ml 300 ml -400 ml Constitutional: alert, oriented Psych: no complaints Head: normocephalic Eyes: nl sclera, PERRL ENMT: mucosa pink and moist Respiratory: clear to auscultation Cardiovascular: regular rate and rhythm Gastrointestinal: soft, tender (mild surgical tenderness) Musculoskeletal: nl gait and stance Neurological: nl mental status Results Result Diagram: 01/12/19 0439 01/12/19 0439 Results 24hrs Laboratory Tests Test 01/12/19 04:39 White Blood Count 6.8 Red Blood Count 4.61 L Hemoglobin 12.8 L Hematocrit 38.0 L Mean Corpuscular Volume 82.4 Mean Corpuscular Hemoglobin 27.8 L Mean Corpuscular Hemoglobin Concent 33.7 Red Cell Distribution Width 12.6 Platelet Count 258 Mean Platelet Volume 11.8 H Immature Granulocytes % 0.300 Neutrophils % 49.1 Lymphocytes % 31.0 Monocytes % 9.2 Eosinophils % 9.8 H Basophils % 0.6 Nucleated Red Blood Cells % 0.0 Immature Granulocytes # 0.020 Neutrophils # 3.4 Lymphocytes # 2.1 Monocytes # 0.6 Eosinophils # 0.7 H Basophils # 0.0 Nucleated Red Blood Cells # 0.0 Sodium Level 140 Potassium Level 3.9 Chloride Level 102 Carbon Dioxide Level 27 Anion Gap 11 Blood Urea Nitrogen 8 Creatinine 0.88 Est Glomerular Filtrat Rate mL/min > 60 Glucose Level 93 Calcium Level 9.5 Total Bilirubin 0.3 Direct Bilirubin 0.00 Indirect Bilirubin 0.3 Aspartate Amino Transf (AST/SGOT) 36 # Alanine Aminotransferase (ALT/SGPT) 86 H Alkaline Phosphatase 90 Total Protein 7.3 Albumin 4.0 Globulin 3.30 H Albumin/Globulin Ratio 1.21 Lipase 93 Medications Medication Current Medications Acetaminophen (Tylenol Tab) 650 mg Q6H PRN PO MILD PAIN(1-3)OR ELEVATED TEMP Last administered on 01/12/19 00:37; Admin Dose 650 MG; Start 01/06/19 at 05:30 Ondansetron HCl (Zofran Inj) 4 mg Q6H PRN IV NAUSEA AND/OR VOMITING; Start 01/06/19 at 05:30 Docusate Sodium (Colace) 100 mg BID PRN PO CONSTIPATION Last administered on 01/11/19 10:09; Admin Dose 100 MG; Start 01/06/19 at 05:30 Al Hydrox/Mg Hydrox/Simethicone (Mag-Al Plus) 30 ml Q6H PRN PO GASTROINTESTINAL UPSET; Start 01/06/19 at 05:30 Ondansetron HCl (Zofran Inj) 4 mg Q4H PRN IV NAUSEA AND/OR VOMITING; Start 01/06/19 at 13:00 Piperacillin Sod/ Tazobactam Sod 100 ml @ 200 mls/hr Q8 IVPB Last administered on 01/12/19 06:47; Admin Dose 200 MLS/HR; Start 01/06/19 at 14:00 Morphine Sulfate (morphine) 2 mg Q2H PRN IV PAIN LEVEL 6-10; Start 01/09/19 at 15:00 Acetaminophen/ Hydrocodone Bitart ([place] (5/325)) 1 tab Q6H PRN PO PAIN LEVEL 6-10 Last administered on 01/10/19 11:40; Admin Dose 1 TAB; Start 01/09/19 at 15:00 Famotidine (Pepcid) 20 mg BID PO Last administered on 01/11/19 21:17; Admin Dose 20 MG; Start 01/10/19 at 21:00 Polysaccharide Iron Complex (Niferex-150) 1 cap BID PO Last administered on 01/11/19 21:17; Admin Dose 1 CAP; Start 01/11/19 at 13:30 Bisacodyl (Dulcolax) 10 mg DAILY PRN PO CONSTIPATION Last administered on 01/11/19 15:41; Admin Dose 10 MG; Start 01/11/19 at 15:30 EVE EPPS Jan 12, 2019 07:44
[2019-01-12 07:51] VITALS: BP 115/70; PULSE 72; RESP 18
--- NOTE | 2019-01-12 08:33 | PN ---
Date/Time of Note Date/Time of Note DATE: 01/12/19 TIME: 08:31 Assessment/Plan VTE Prophylaxis Risk score (from Nsg)>0 risk: 4 SCD applied (from Nsg): Yes Pharmacological prophylaxis: other Lines/Catheters IV Catheter Type (from Nrsg): Saline Lock Urinary Cath still in place: No Assessment/Plan Assessment/Plan s/p hemorrhoidectomy with anal stenosis s/p house skin flap doing well some superficial necrosis doing well and having normal caliber BM s/p lap kori doing well and tolerating diet ok to dc home today no need for additional abx Result Diagram: 01/12/199 01/12/19 0439 Results 24hrs Laboratory Tests Test 01/12/19 04:39 White Blood Count 6.8 Red Blood Count 4.61 L Hemoglobin 12.8 L Hematocrit 38.0 L Mean Corpuscular Volume 82.4 Mean Corpuscular Hemoglobin 27.8 L Mean Corpuscular Hemoglobin Concent 33.7 Red Cell Distribution Width 12.6 Platelet Count 258 Mean Platelet Volume 11.8 H Immature Granulocytes % 0.300 Neutrophils % 49.1 Lymphocytes % 31.0 Monocytes % 9.2 Eosinophils % 9.8 H Basophils % 0.6 Nucleated Red Blood Cells % 0.0 Immature Granulocytes # 0.020 Neutrophils # 3.4 Lymphocytes # 2.1 Monocytes # 0.6 Eosinophils # 0.7 H Basophils # 0.0 Nucleated Red Blood Cells # 0.0 Sodium Level 140 Potassium Level 3.9 Chloride Level 102 Carbon Dioxide Level 27 Anion Gap 11 Blood Urea Nitrogen 8 Creatinine 0.88 Est Glomerular Filtrat Rate mL/min > 60 Glucose Level 93 Calcium Level 9.5 Total Bilirubin 0.3 Direct Bilirubin 0.00 Indirect Bilirubin 0.3 Aspartate Amino Transf (AST/SGOT) 36 # Alanine Aminotransferase (ALT/SGPT) 86 H Alkaline Phosphatase 90 Total Protein 7.3 Albumin 4.0 Globulin 3.30 H Albumin/Globulin Ratio 1.21 Lipase 93 Subjective 24 Hr Interval Summary Free Text/Dictation patient doing well from lap kori and tolerating diet Exam/Review of Systems Exam Vitals Vital Signs Date Temp Pulse Resp B/P (MAP) Pulse Ox O2 O2 Flow FiO2 Time Delivery Rate 01/12/19 97.7 72 18 115/70 95 07:51 (85) 01/12/19 Room Air 00:41 Intake and Output 01/11/19 01/11/19 01/12/19 1515:00 23:00 07:00 IntakeIntake Total 460 ml 300 ml OutputOutput Total 800 ml 400 ml BalanceBalance -340 ml 300 ml -400 ml Exam abdominal incisions c/d/i house flap some superficial necrosis and skin sloughing but otherwise doing well minimal drainage Results Results 24hrs Laboratory Tests Test 01/12/19 04:39 White Blood Count 6.8 Red Blood Count 4.61 L Hemoglobin 12.8 L Hematocrit 38.0 L Mean Corpuscular Volume 82.4 Mean Corpuscular Hemoglobin 27.8 L Mean Corpuscular Hemoglobin Concent 33.7 Red Cell Distribution Width 12.6 Platelet Count 258 Mean Platelet Volume 11.8 H Immature Granulocytes % 0.300 Neutrophils % 49.1 Lymphocytes % 31.0 Monocytes % 9.2 Eosinophils % 9.8 H Basophils % 0.6 Nucleated Red Blood Cells % 0.0 Immature Granulocytes # 0.020 Neutrophils # 3.4 Lymphocytes # 2.1 Monocytes # 0.6 Eosinophils # 0.7 H Basophils # 0.0 Nucleated Red Blood Cells # 0.0 Sodium Level 140 Potassium Level 3.9 Chloride Level 102 Carbon Dioxide Level 27 Anion Gap 11 Blood Urea Nitrogen 8 Creatinine 0.88 Est Glomerular Filtrat Rate mL/min > 60 Glucose Level 93 Calcium Level 9.5 Total Bilirubin 0.3 Direct Bilirubin 0.00 Indirect Bilirubin 0.3 Aspartate Amino Transf (AST/SGOT) 36 # Alanine Aminotransferase (ALT/SGPT) 86 H Alkaline Phosphatase 90 Total Protein 7.3 Albumin 4.0 Globulin 3.30 H Albumin/Globulin Ratio 1.21 Lipase 93 Medications Medication Current Medications Acetaminophen (Tylenol Tab) 650 mg Q6H PRN PO MILD PAIN(1-3)OR ELEVATED TEMP Last administered on 01/12/19at 00:37; Admin Dose 650 MG; Start 01/06/19 at 05:30 Ondansetron HCl (Zofran Inj) 4 mg Q6H PRN IV NAUSEA AND/OR VOMITING; Start 01/06/19 at 05:30 Docusate Sodium (Colace) 100 mg BID PRN PO CONSTIPATION Last administered on 01/11/19at 10:09; Admin Dose 100 MG; Start 01/06/19 at 05:30 Al Hydrox/Mg Hydrox/Simethicone (Mag-Al Plus) 30 ml Q6H PRN PO GASTROINTESTINAL UPSET; Start 01/06/19 at 05:30 Ondansetron HCl (Zofran Inj) 4 mg Q4H PRN IV NAUSEA AND/OR VOMITING; Start 01/06/19 at 13:00 Piperacillin Sod/ Tazobactam Sod 100 ml @ 200 mls/hr Q8 IVPB Last administered on 01/12/19 06:47; Admin Dose 200 MLS/HR; Start 01/06/19 at 14:00 Morphine Sulfate (morphine) 2 mg Q2H PRN IV PAIN LEVEL 6-10; Start 01/09/19 at 15:00 Acetaminophen/ Hydrocodone Bitart ([place] (5/325)) 1 tab Q6H PRN PO PAIN LEVEL 6 -10 Last administered on 01/10/19 11:40; Admin Dose 1 TAB; Start 01/09/19 at 15:00 Famotidine (Pepcid) 20 mg BID PO Last administered on 01/11/19 21:17; Admin Dose 20 MG; Start 01/10/19 at 21:00 Polysaccharide Iron Complex (Niferex-150) 1 cap BID PO Last administered on 01/11/19 21:17; Admin Dose 1 CAP; Start 01/11/19 at 13:30 Bisacodyl (Dulcolax) 10 mg DAILY PRN PO CONSTIPATION Last administered on 01/11/19 15:41; Admin Dose 10 MG; Start 01/11/19 at 15:30 Mihir CAMARILLO Jan 12, 2019 08:33
[2019-01-12] MEDS: FAMOTIDINE 20 MG TAB PO SCH (10:17)
[2019-01-12] MEDS: POLYSACCHARIDE IRON COMPLEX CAP PO SCH (10:17)
--- NOTE | 2019-01-12 11:58 | PN ---
Date/Time of Note Date/Time of Note DATE: 01/12/19 TIME: 11:55 Assessment/Plan VTE Prophylaxis Risk score (from Ns)>0 risk: 5 SCD applied (from Ns): Yes Pharmacological prophylaxis: NA/contraindicated Pharm contraindication: low risk/ambulating Lines/Catheters IV [facility]from [facility] Saline Lock Urinary Cath still in place: No Assessment/Plan Hospital Course 63-year-old male who presented with: 1. Right upper quadrant pain, nausea, vomiting with evidence of gallbladder wall edema on the CAT scan and ultrasound shows common bile duct dilatation, 6 mm stone in the gallbladder neck. MRCP neg patient has symptomatic gallstoness/p Lap kori 2. Abnormal LFTs and alkaline phosphatase secondary to #1, likely secondary to choledocholithiasis. 3. Leukocytosis secondary to #1. 4. History of hypertension. 5. Hyperlipidemia. 6. History of annuloplasty with ulcer. Plan -Pain much improved. LFTs normalized -Cleared to be discharged home per Dr. Gonsalves Result Diagram: 01/12/199 01/12/19 0439 Results 24hrs Laboratory Tests Test 01/12/19 04:39 White Blood Count 6.8 Red Blood Count 4.61 L Hemoglobin 12.8 L Hematocrit 38.0 L Mean Corpuscular Volume 82.4 Mean Corpuscular Hemoglobin 27.8 L Mean Corpuscular Hemoglobin Concent 33.7 Red Cell Distribution Width 12.6 Platelet Count 258 Mean Platelet Volume 11.8 H Immature Granulocytes % 0.300 Neutrophils % 49.1 Lymphocytes % 31.0 Monocytes % 9.2 Eosinophils % 9.8 H Basophils % 0.6 Nucleated Red Blood Cells % 0.0 Immature Granulocytes # 0.020 Neutrophils # 3.4 Lymphocytes # 2.1 Monocytes # 0.6 Eosinophils # 0.7 H Basophils # 0.0 Nucleated Red Blood Cells # 0.0 Sodium Level 140 Potassium Level 3.9 Chloride Level 102 Carbon Dioxide Level 27 Anion Gap 11 Blood Urea Nitrogen 8 Creatinine 0.88 Est Glomerular Filtrat Rate mL/min > 60 Glucose Level 93 Calcium Level 9.5 Total Bilirubin 0.3 Direct Bilirubin 0.00 Indirect Bilirubin 0.3 Aspartate Amino Transf (AST/SGOT) 36 # Alanine Aminotransferase (ALT/SGPT) 86 H Alkaline Phosphatase 90 Total Protein 7.3 Albumin 4.0 Globulin 3.30 H Albumin/Globulin Ratio 1.21 Lipase 93 Subjective 24 Hr Interval Summary Free Text/Dictation feelsWell. Exam/Review of Systems Exam Vitals Vital Signs Date Temp Pulse Resp B/P (MAP) Pulse Ox O2 O2 Flow FiO2 Time Delivery Rate 01/12/19 97.7 72 18 115/70 95 07:51 (85) 01/12/19 Room Air 00:41 Intake and Output 01/11/19 01/11/19 01/12/19 1515:00 23:00 07:00 IntakeIntake Total 460 ml 300 ml OutputOutput Total 800 ml 400 ml BalanceBalance -340 ml 300 ml -400 ml Exam Constitutional: alert, oriented Cardiovascular: regular rate and rhythm Gastrointestinal: soft, surgical scars Results Results 24hrs Laboratory Tests Test 01/12/19 04:39 White Blood Count 6.8 Red Blood Count 4.61 L Hemoglobin 12.8 L Hematocrit 38.0 L Mean Corpuscular Volume 82.4 Mean Corpuscular Hemoglobin 27.8 L Mean Corpuscular Hemoglobin Concent 33.7 Red Cell Distribution Width 12.6 Platelet Count 258 Mean Platelet Volume 11.8 H Immature Granulocytes % 0.300 Neutrophils % 49.1 Lymphocytes % 31.0 Monocytes % 9.2 Eosinophils % 9.8 H Basophils % 0.6 Nucleated Red Blood Cells % 0.0 Immature Granulocytes # 0.020 Neutrophils # 3.4 Lymphocytes # 2.1 Monocytes # 0.6 Eosinophils # 0.7 H Basophils # 0.0 Nucleated Red Blood Cells # 0.0 Sodium Level 140 Potassium Level 3.9 Chloride Level 102 Carbon Dioxide Level 27 Anion Gap 11 Blood Urea Nitrogen 8 Creatinine 0.88 Est Glomerular Filtrat Rate mL/min > 60 Glucose Level 93 Calcium Level 9.5 Total Bilirubin 0.3 Direct Bilirubin 0.00 Indirect Bilirubin 0.3 Aspartate Amino Transf (AST/SGOT) 36 # Alanine Aminotransferase (ALT/SGPT) 86 H Alkaline Phosphatase 90 Total Protein 7.3 Albumin 4.0 Globulin 3.30 H Albumin/Globulin Ratio 1.21 Lipase 93 Medications Medication Current Medications Acetaminophen (Tylenol Tab) 650 mg Q6H PRN PO MILD PAIN(1-3)OR ELEVATED TEMP L ast administered on 01/12/19at 00:37; Admin Dose 650 MG; Start 01/06/19 at 05:30 Ondansetron HCl (Zofran Inj) 4 mg Q6H PRN IV NAUSEA AND/OR VOMITING; Start 01/06/19 at 05:30 Docusate Sodium (Colace) 100 mg BID PRN PO CONSTIPATION Last administered on 01/11/19 10:09; Admin Dose 100 MG; Start 01/06/19 at 05:30 Al Hydrox/Mg Hydrox/Simethicone (Mag-Al Plus) 30 ml Q6H PRN PO GASTROINTESTINAL UPSET; Start 01/06/19 at 05:30 Ondansetron HCl (Zofran Inj) 4 mg Q4H PRN IV NAUSEA AND/OR VOMITING; Start 01/06/19 at 13:00 Piperacillin Sod/ Tazobactam Sod 100 ml @ 200 mls/hr Q8 IVPB Last administered on 01/12/19 06:47; Admin Dose 200 MLS/HR; Start 01/06/19 at 14:00 Morphine Sulfate (morphine) 2 mg Q2H PRN IV PAIN LEVEL 6-10; Start 01/09/19 at 15:00 Acetaminophen/ Hydrocodone Bitart ([place] (5/325)) 1 tab Q6H PRN PO PAIN LEVEL 6-10 Last administered on 01/10/19 11:40; Admin Dose 1 TAB; Start 01/09/19 at 15:00 Famotidine (Pepcid) 20 mg BID PO Last administered on 01/12/19 10:17; Admin Dose 20 MG; Start 01/10/19 at 21:00 Polysaccharide Iron Complex (Niferex-150) 1 cap BID PO Last administered on 01/12/19 10:17; Admin Dose 1 CAP; Start 01/11/19 at 13:30 Bisacodyl (Dulcolax) 10 mg DAILY PRN PO CONSTIPATION Last administered on 01/11/19 15:41; Admin Dose 10 MG; Start 01/11/19 at 15:30 JEANCARLOS MONTOYA MD Jan 12, 2019 11:58
--- NOTE | 2019-01-12 11:59 | PDOCDIS ---
Discharge Instructions DIAGNOSIS Discharge Diagnosis syntomatic kori s/p lap kori superficial ulcer CONDITION [id number] Patient Condition: [id number] Fair HOME CARE INSTRUCTIONS: 2 [id number] Diet Instructions: [id number] Modified Fat ACTIVITY: [id number] Activity Restrictions: [id number] No Restrictions Slowly Increase Activity Rest between Activity Avoid heavy lifting FOLLOW UP/APPOINTMENTS Follow-up Plan f/u Dr Gonsalves in 1 week JEANCARLOS MONTOYA MD Jan 12, 2019 11:59
[2019-01-12] MEDS ORDERED: DOCU-144 PO (12:00)
[2019-01-12] MEDS ORDERED: BISA5TAB6 PO (12:00)
[2019-01-12] MEDS ORDERED: HYDR-3601 PO (12:00)
[2019-01-12 13:29] VITALS: BP 120/77; PULSE 82; RESP 18
--- NOTE | 2019-01-12 21:07 | DS ---
DATE OF ADMISSION: 01/06/2019 DATE OF DISCHARGE: 01/12/2019 HISTORY OF PRESENTING ILLNESS AND HOSPITAL COURSE: This is a 63-year-old with a past medical history of diabetes, hypertension, history of hemorrhoids, annuloplasty with house flap of local laceration and use of skin flaps. At that time, the patient stayed in the hospital for 5 days and was discharge d with followup with Dr. Camarillo as an outpatient. According to the patient, the patient noted some disc harge from the anal side after he had seen Dr. Camarillo twice. After that, all of a sudden he started hav ing epigastric pain, nausea, vomiting in the morning. He was taken to [facility]. There, t he patient was found to have lipase normal. CT of the abdomen and pelvis showed abnormal gallbladder wall edema, hepatic steatosis, atherosclerosis, mild dilatation of extrahepatic [facility] duct[facility] that showed common bile duct dilatation of 6 mm with stone at the gallbladder neck. The patient was transferred to [facility] due to insurance reasons. The patient was found to have AST of 906, ALT 603, alkaline phosphatase at 152, white count 6.0. Th e patient had an MRCP that was cholelithiasis without evidence of cholecystitis or choledocholithiasi s. The patient had an abdominal ultrasound that showed gallstones. The patient was having a lot of pain. The patient was seen by Dr. Camarillo with surgical consultation. The patient was also seen by Dr. Campa for GI consultation. Since LFTs started trending down, there was no indication for ERCP. The patient went for cholecystectomy with Dr. Camarillo for symptomatic cholelithiasis. Postop, the patient w as feeling much better and was started on regular diet. The patient was also followed by Dr. Camarillo for the superficial necrosis of hemorrhoidectomy with anal stenosis. According to him, he is feeling be tter. The patient is having normal caliber BM and is stable to be discharged home without any antibi otics. FINAL DISCHARGE DIAGNOSES: 1. Right upper quadrant pain, nausea, vomiting, evidence of gallbladder wall edema with symptomatic cholelithiasis status post laparoscopic cholecystectomy. 2. Abnormal liver function tests and alkaline phosphatase is secondary to #1, resolved. 3. Leukocytosis secondary to #1, resolved. 4. History of hypertension. 5. Hyperlipidemia history. 6. History of annuloplasty with superficial ulcer. The patient will follow up with wound care as an outpatient. DISCHARGE MEDICATIONS: 1. [place] 1 tab p.o. q.4 p.r.n. pain. 2. Bisacodyl p.r.n. constipation, 3. Colace p.r.n. constipation. 4. Norvasc 5. 5. Gemfibrozil 600 b.i.d. 6. Metamucil p.r.n. constipation. FOLLOWUP: The patient was instructed to follow up with Dr. Camarillo in 1 week. Arrangement was done for home health. Dictated By: JEANCARLOS SALCIDO/PENNY Conf#: [id number] DID#: [id number] CC: HIGINIO ALDRIDGE MD; JASKARAN CAMARILLO MD;*[facility]*
== END 2019-01-12 17:05 | disposition home or self-care (01) | DRG 419 ==
LOC: MS1 03:30
PROVIDERS: ADMIT Internal Medicine Nephrology; ATTEND Internal Medicine Nephrology
PROC: 0FT44ZZ Resection of Gallbladder, Percutaneous Endoscopic Approach (ICD-10-PCS; principal; 2019-01-09 13:30)
DX: K80.20 Calculus of gallbladder without cholecystitis without obstruction (principal); E78.5 Hyperlipidemia, unspecified; I10 Essential (primary) hypertension; E11.9 Type 2 diabetes mellitus without complications; Z98.890 Other specified postprocedural states
CPT/HCPCS: 71045; 74181; 76705; 80048; 80053; 82150; 83690; 83735; 84100; 85025; 85610; 88304; 90686; 93005; C9113; J0360; J0690; J0696; J1170; J2250; J2270; J2405; J2543; J2795; J3010; J7030; J7042; Q9967